=== PATIENT | female | born 1935 | race Caucasian/White ===

== ENCOUNTER 2019-01-28 05:39 | Emergency (ER) | payer MEDICARE, OTHER ==
[2019-01-28 06:04] VITALS: BP 149/57
[2019-01-28] MEDS ORDERED: FENTANYL CITRATE INJ/PF 100 MCG/2 ML AMPUL IV ONE (06:37)
[2019-01-28] MEDS ORDERED: ONDANSETRON HCL INJ/PF 4 MG/2 ML SDV IV ONE (06:38)
--- NOTE | 2019-01-28 06:38 | RADIOLOGY REPORT (SQ) ---
EXAM DESCRIPTION: CT HEAD WITHOUT IV CONTRAST COMPLETED DATE/TME: 01/28/2019 05:54 CLINICAL HISTORY: trauma/pain COMPARISON: None available TECHNIQUE: Axial CT of the head obtained from the skull apex to the skull base without contrast. FINDINGS: No acute intracranial hemorrhage identified. No mass, mass effect, shift of the midline, abnormal extra-axial fluid collection or CT evidence of acute ischemic change identified. The ventricular system and sulcal spaces are mildly enlarged compatible with mild cerebral atrophy. Scattered areas of hypodensity throughout the supratentorial white matter are nonspecific and may be related to chronic small vessel ischemic change. Mucosal thickening of paranasal sinuses. Mastoid air cells are well aerated. No skull fracture identified. Visualized orbits and globes are unremarkable. Atherosclerotic calcification of the intracranial internal carotid arteries. DLP: 937.36 mGy-cm IMPRESSION: 1. No acute intracranial abnormality by CT criteria. This exam was performed according to our departmental dose-optimization program, which includes automated exposure control, adjustment of the mA and/or kV according to patient size and/or use of iterative reconstruction technique.
--- NOTE | 2019-01-28 06:42 | RADIOLOGY REPORT (SQ) ---
EXAM DESCRIPTION: CT LUMBAR SPINE WITHOUT IV CONTRAST COMPLETED DATE/TME: 01/28/2019 06:09 CLINICAL HISTORY: 83 years, Female, fall COMPARISON: None. TECHNIQUE: 270 Images stored on PACS. All CT scanners at this facility use dose modulation, iterative reconstruction, and/or weight based dosing when appropriate to reduce radiation dose to as low as reasonably achievable (ALARA). [facility]: Dose Right [facility]: CareDose [facility]: Dose Right [facility]: Teradose 4D [facility]: Tab [place] LIMITATIONS: None. FINDINGS: 5 lumbar type vertebral bodies. Mild compression fracture deformity of L1 with minimal loss of height. There is slight posterior bulging of the superior L1 cortex without retropulsed fracture fragment. Height and alignment is otherwise preserved. Extensive atheromatous changes. Vacuum disc phenomenon at the L4-5 and L5-S1 levels. Mild facet arthropathy throughout the lumbar spine. Combination of degenerative changes and disc bulging at the L4-5 level causes at least moderate to severe central canal stenosis and mild neural foraminal narrowing. No other CT evidence for significant central canal stenosis. IMPRESSION: Mild compression fracture deformity of L1 with equivocal/minimal loss of height. Degenerative change at multiple levels, with moderate to severe central canal stenosis at L4-5 TECHNICAL DOCUMENTATION: Quality ID # [id number]: Final reports with documentation of one or more dose reduction techniques (e.g., Automated exposure control, adjustment of the mA and/or kV according to patient size, use of iterative reconstruction technique) copyright 2010 [employer]- All Rights Reserved
--- NOTE | 2019-01-28 06:48 | RADIOLOGY REPORT (SQ) ---
EXAM DESCRIPTION: CT CERVICAL SPINE WITHOUT IV CONTRAST COMPLETED DATE/TME: 01/28/2019 05:54 CLINICAL HISTORY: trauma/pain COMPARISON: None available TECHNIQUE: Axial CT of the cervical spine obtained without contrast. FINDINGS: Straightening of the cervical lordosis is likely secondary to patient positioning. The atlantoaxial, atlantodental, and occipitoatlantal intervals are preserved. No acute fracture identified. Vertebral body height preserved. Prevertebral soft tissues are unremarkable. Mild loss of intervertebral disc height with endplate spondylosis, facet arthropathy, and uncovertebral spurring throughout the cervical spine. Spurring and degenerative change of the atlantodental articulation. Mild anterolisthesis of C4 over C5 and C5 over C6 is likely degenerative. No widening of the facet joint spaces. Visualized skull base is intact. No fracture of the visualized facial bones. Visualized mastoid air cells and paranasal sinuses are well aerated. No cervical lymphadenopathy. No pneumothorax in the visualized lung apices. Atherosclerotic vascular calcification. DLP: 274.0 cm mGy-cm IMPRESSION: 1. No acute fracture or subluxation of the cervical spine. 2. Multilevel degenerative change throughout the cervical spine. This exam was performed according to our departmental dose-optimization program, which includes automated exposure control, adjustment of the mA and/or kV according to patient size and/or use of iterative reconstruction technique.
--- NOTE | 2019-01-28 06:50 | ER Document Report ---
ED Fall - General Chief Complaint: Fall Stated Complaint: FALL Time Seen by Provider: 01/28/19 06:06 Primary Care Provider: DEMAR ARORA [Primary Care Provider] - Follow up as needed TRAVEL OUTSIDE OF THE [place] IN LAST 30 DAYS: No - HPI Notes: Patient is an 83-year-old female who presents to the emergency department for evaluation. She was getting up to go to the bathroom. Her feet slipped out from underneath her. She fell, striking first her buttocks and then the back of her head. She denies loss of consciousness. When you ask her where she is hurting she states "everywhere." She is currently on blood thinners. Is unsure when her INR was last checked. Prior to arrival, patient's son replaced her 75 mcg fentanyl patch, also gave her an oral Percocet. She states that has not helped at all with her pain. - Related data Allergies/Adverse Reactions: codeine Allergy (Verified 01/28/19 06:01) Past Medical History - General Information source: Patient, Relative - Social History Smoking Status: Never Smoker Chew tobacco use (# tins/day): No Frequency of alcohol use: None Family History: Reviewed & Not Pertinent Patient has suicidal ideation: No Patient has homicidal ideation: No - Past Medical History Cardiac Medical History: Reports: Hx Atrial Fibrillation, Hx Hypercholesterolemia Renal/ Medical History: Denies: Hx Peritoneal Dialysis Musculoskeletal Medical History: Reports Other - Chronic back pain Review of Systems - Review of Systems Constitutional: No symptoms reported EENT: No symptoms reported Cardiovascular: No symptoms reported Respiratory: No symptoms reported Gastrointestinal: No symptoms reported Genitourinary: No symptoms reported Musculoskeletal: See HPI Skin: No symptoms reported Neurological/Psychological: No symptoms reported Physical Exam - Vital signs Vitals: Temp Pulse Resp BP Pulse Ox 97.9 F 70 16 149/57 H 95 01/28/19 05:51 01/28/19 05:51 01/28/19 05:51 01/28/19 05:51 01/28/19 05:51 - Notes Notes: Patient is an 83-year-old female appears his stated age, mild amount of distress secondary to pain. She is laying flat in the bed with c-collar in place. Head is normocephalic. Pupils are equal, round, reactive to light. Oral mucosa is moist. Uvula is midline. Heart is regular rate and rhythm, lungs are clear to auscultation bilaterally. Chest wall excursion is equal bilaterally. Abdomen soft, nontender, normoactive bowel sounds. The lightest touch of any of the extremities does elicit significant pain from the patient. Unable to perform passive or active range of motion of bilateral lower extremity secondary to pain. Neurovascular intact distally. No overt signs of trauma. She has had bilateral TKAs, scars are well-healed, no signs of dehiscence. Patient with some tenderness to palpation over the right scapular spine. Neurovascularly intact of the right upper extremity with full range of motion of the elbow, wrist, fingers, thumb. Course - Re-evaluation Re-evalutation: 01/28/19 09:50 Patient presents to the emergency department for evaluation after a fall. I cannot find any truly objective signs of injury on her exam, but the patient hurts nearly everywhere. Imaging is ordered. There was a compression fracture noted at L1, it is difficult to say as to whether or not this is acute. Again the patient had no global tenderness on evaluation of her spine. Patient medicated here with some relief. She is already on fentanyl and oxycodone at home. Otherwise, CT scans of the head, neck, plain films of the shoulder, bilateral hips, bilateral knees is unremarkable. She did sustain a head injury, thankfully her INR was only 1.3. We will discharge the patient to home. She is to follow-up with primary care. She is to return to the emergency department with worsening or new concerning symptoms of any sort. - Vital Signs Vital signs: Temp Pulse Resp BP Pulse Ox 97.9 F 70 16 149/57 H 95 01/28/19 05:51 01/28/19 05:51 01/28/19 05:51 01/28/19 05:51 01/28/19 05:51 - Laboratory Result Diagrams: 01/28/19 07:50 01/28/19 07:50 Laboratory results interpreted by me: 01/28/19 01/28/19 01/28/19 07:50 07:50 08:15 Hgb 11.8 L RDW 15.4 H PT 17.0 H Carbon Dioxide 32 H BUN 21 H Total Protein 6.2 L Albumin 3.4 L Ur Leukocyte Esterase 01/28/19 09:03 Hgb RDW PT Carbon Dioxide BUN Total Protein Albumin Ur Leukocyte Esterase MODERATE H Discharge - Discharge Clinical Impression: Head injury due to trauma Qualifiers: Encounter type: initial encounter Qualified Code(s): S09.90XA - Unspecified injury of head, initial encounter Fall Qualifiers: Encounter type: initial encounter Qualified Code(s): W19.XXXA - Unspecified fall, initial encounter Compression fracture of L1 lumbar vertebra Qualifiers: Encounter type: initial encounter Qualified Code(s): S32.010A - Wedge c ompression fracture of first lumbar vertebra, initial encounter for closed fracture Condition: Stable Disposition: HOME, SELF-CARE Instructions: Compression Fracture of the Spine ([facility]), Head Injury Precautions ([facility]) Additional Instructions: Continue your home medications as prescribed. Your INR was 1.3 today. You may need adjustment in your warfarin dose. Please contact your primary care elio zhou regarding this. If you develop increased pain, visual changes, vomiting, or any other new or concerning symptoms, return immediately to the emergency department for evaluation. Referrals: LOCALMD,NO [Primary Care Provider] - Follow up as needed
--- NOTE | 2019-01-28 07:49 | RADIOLOGY REPORT (SQ) ---
EXAM DESCRIPTION: XR SHOULDER 2 OR MORE VIEWS COMPLETED DATE/TME: 01/28/2019 06:48 CLINICAL HISTORY: 83 years, Female, fall, pain COMPARISON: None. FINDINGS: 3 views of the right shoulder. No acute fracture or dislocation. Osteopenia. No acute abnormalities of visualized right ribs. IMPRESSION: 1. No acute fracture or dislocation. copyright 2010 [employer]- All Rights Reserved
--- NOTE | 2019-01-28 07:50 | RADIOLOGY REPORT (SQ) ---
EXAM DESCRIPTION: XR HIP 1 VIEW BILATERAL COMPLETED DATE/TME: 01/28/2019 06:38 CLINICAL HISTORY: 83 years, Female, fall, pain COMPARISON: None. FINDINGS: Single view of the pelvis and lateral view of the right hip. Osteopenia. No acute fracture. Bilateral hip joint space narrowing. Healed left pubic ramus fracture. IMPRESSION: 1. No acute fracture identified. Given degree of osteopenia, if the patient continues to have pain follow-up radiographs may be helpful. 2. Osteophytic change of the bilateral hips copyright 2010 [employer]- All Rights Reserved
--- NOTE | 2019-01-28 07:51 | RADIOLOGY REPORT (SQ) ---
EXAM DESCRIPTION: XR KNEE 1-2 VIEWS BILATERAL COMPLETED DATE/TME: 01/28/2019 06:38 CLINICAL HISTORY: 83 years, Female, fall COMPARISON: None. FINDINGS: 2 views of the bilateral knees. Healed left fibular fracture. Lateral total knee arthroplasties. Osteopenia. No acute fractures identified. IMPRESSION: 1. Bilateral total knee arthroplasties. 2. No acute fractures identified. copyright 2010 [employer]- All Rights Reserved
[2019-01-28 08:03] LABS: ABSOLUTE EOSINOPHILS # (AUTO) 0.2 10^3/uL (0.0-0.6); ABSOLUTE LYMPHOCYTES (AUTO) 1.4 10^3/uL (0.5-4.7); ABSOLUTE MONOCYTES (AUTO) 0.8 10^3/uL (0.1-1.4); ABSOLUTE NEUT (AUTO) 6.8 10^3/uL (1.7-8.2); BASOPHILS % (AUTO) 0.2 % (0-2); EOSINOPHILS % (AUTO) 2.7 % (0-6); HEMATOCRIT 36.1 % (36.0-47.0); HEMOGLOBIN 11.8 g/dL (12.0-15.5); LYMPHOCYTES % (AUTO) 15.6 % (13-45); MEAN CORPUSCULAR HEMOGLOBIN 29.5 pg (27.0-33.4); MEAN CORPUSCULAR HGB CONC 32.5 g/dL (32.0-36.0); MEAN CORPUSCULAR VOLUME 91 fl (80-97); MONOCYTES % (AUTO) 8.1 % (3-13); PLATELET COUNT 261 10^3/uL (150-450); RED BLOOD COUNT 3.98 10^6/uL (3.72-5.28); RED CELL DISTRIBUTION WIDTH 15.4 % (11.5-14.0); SEGMENTED NEUTROPHILS % (AUTO) 73.4 % (42-78); TOTAL CELLS COUNTED % (AUTO) 100 %; WHITE BLOOD COUNT 9.3 10^3/uL (4.0-10.5)
[2019-01-28 08:24] LABS: ALANINE AMINOTRANSFERASE 22 U/L (9-52); ALBUMIN 3.4 g/dL (3.5-5.0); ALKALINE PHOSPHATASE 92 U/L (38-126); ANION GAP 9 (5-19); ASPARTATE AMINO TRANSFERASE 31 U/L (14-36); BILIRUBIN,DIRECT 0.4 mg/dL (0.0-0.4); BLOOD UREA NITROGEN 21 mg/dL (7-20); CALCIUM 8.9 mg/dL (8.4-10.2); CARBON DIOXIDE 32 mmol/L (22-30); CHLORIDE 101 mmol/L (98-107); GLUCOSE 87 mg/dL (75-110); POTASSIUM 4.6 mmol/L (3.6-5.0); TOTAL PROTEIN 6.2 g/dL (6.3-8.2)
[2019-01-28 08:39] LABS: INTERNATIONAL RATION (INR) 1.31
[2019-01-28 08:40] LABS: PARTIAL THROMBOPLASTIN TIME 34.2 SEC (23.5-35.8)
[2019-01-28 09:15] LABS: APPEARANCE,URINE CLEAR; BILIRUBIN,URINE NEGATIVE (NEGATIVE); COLOR,URINE YELLOW; GLUCOSE, URINE NEGATIVE (NEGATIVE); KETONES,URINE NEGATIVE (NEGATIVE); LEUKOCYTE ESTERASE,URINE MODERATE (NEGATIVE); NITRITE,URINE NEGATIVE (NEGATIVE); PROTEIN,URINE NEGATIVE (NEGATIVE); URINE SPECIFIC GRAVITY 1.011; UROBILINOGEN,URINE NEGATIVE mg/dL (<2.0)
== END 2019-01-28 10:05 | disposition home or self-care (01) ==
LOC: ER 05:39
DX: S32.010A Wedge compression fracture of first lumbar vertebra, initial encounter for closed fracture (principal); S09.90XA Unspecified injury of head, initial encounter; W01.0XXA Fall on same level from slipping, tripping and stumbling without subsequent striking against object, initial encounter; Y93.89 Activity, other specified; I48.91 Unspecified atrial fibrillation; Z79.01 Long term (current) use of anticoagulants; M54.9 Dorsalgia, unspecified; G89.29 Other chronic pain; Z79.891 Long term (current) use of opiate analgesic; Z88.5 Allergy status to narcotic agent
CPT/HCPCS: 99284; 96374; 96375; 36415; 87086; 85025; 85610; 85730; 80053; 81001; 73522; 73030; 73560; 70450; 72125; 72131; J3010; J2405

== ENCOUNTER 2020-05-10 08:27 | Emergency (ER) | payer MEDICARE ==
[2020-05-10] MEDS ORDERED: METHYLPREDNISOLONE INJ 125 MG/2 ML SDV IV ONE (08:58)
--- NOTE | 2020-05-10 09:01 | ER Document Report ---
ED General - General Chief Complaint: Shortness Of Breath Stated Complaint: SHORTNESS OF BREATH/WEAKNESS Time Seen by Provider: 05/10/20 08:40 Primary Care Provider: DEMAR ARORA [NO LOCAL MD] - Follow up as needed Mode of Arrival: Medic Information source: Patient Notes: 85-year-old female patient presents emergency department with chief complaint of cough and shortness of breath. Patient reports she traveled to [place] from [place] 1 week ago, she states her cough is chronic but she states the difficulty breathing started this morning. She reports significant history of recurrent pneumonias, COPD, A. fib, MT, mild dementia. She reports that she has a nonproductive cough, denies fever or chills. She does report pain to her right scapular area. She states this has been going on since yesterday and feels like a burning sensation. TRAVEL OUTSIDE OF THE [place] IN LAST 30 DAYS: No - Related Data Allergies/Adverse Reactions: codeine Allergy (Verified 01/28/19 06:01) Past Medical History - General Information source: Patient - Social History Smoking Status: Never Smoker Frequency of alcohol use: None Drug Abuse: None Family History: Reviewed & Not Pertinent - Past Medical History Cardiac Medical History: Reports: Hx Atrial Fibrillation, Hx Heart Attack, Hx Hypercholesterolemia Pulmonary Medical History: Reports: Hx COPD, Hx Pneumonia Renal/ Medical History: Denies: Hx Peritoneal Dialysis Past Surgical History: Reports: Hx Appendectomy, Hx Cholecystectomy, Hx Hysterectomy Review of Systems - Review of Systems Constitutional: No symptoms reported. denies: Chills, Fever EENT: No symptoms reported Cardiovascular: Dyspnea Respiratory: Cough, Short of breath Gastrointestinal: No symptoms reported Genitourinary: No symptoms reported Female Genitourinary: No symptoms reported Musculoskeletal: See HPI Skin: No symptoms reported Hematologic/Lymphatic: No symptoms reported Neurological/Psychological: No symptoms reported Physical Exam - Vital signs Vitals: Temp 98.3 F 05/10/20 08:27 - Notes Notes: PHYSICAL EXAMINATION: GENERAL: Appears to be stated age, no acute distress noted. HEAD: Atraumatic, normocephalic. EYES: Pupils equal round and reactive to light, extraocular movements intact, conjunctiva are normal. ENT: Nares patent, oropharynx clear without exudates. Moist mucous membranes. NECK: Normal range of motion, supple without lymphadenopathy LUNGS: Breath sounds clear to auscultation bilaterally and equal. No wheezes rales or rhonchi. HEART: Regular rate and rhythm without murmurs ABDOMEN: Soft, nontender, nondistended abdomen. No guarding, no rebound. No masses appreciated. Female : deferred Musculoskeletal: Normal range of motion, no pitting or edema. No cyanosis. NEUROLOGICAL: Cranial nerves grossly intact. Normal speech, normal gait. Normal sensory, motor exams PSYCH: Normal mood, normal affect. SKIN: Tenderness with slight touch to the skin over the right scapular area. Course - Re-evaluation Re-evalutation: Patient appears well, nontoxic. Patient reports she feels improved after being in the emergency department. Her work-up today is reassuring. It looks like she may have a developing pneumonia on x-ray as well as a urinary tract infection. Discussed with Dr. Marques. - Vital Signs Vital signs: Temp Pulse Resp BP Pulse Ox 98.3 F 20 119/89 H 96 05/10/20 08:27 05/10/20 14:00 05/10/20 10:01 05/10/20 14:00 - Laboratory Result Diagrams: 05/10/20 09:15 05/10/20 09:15 Laboratory results interpreted by me: 05/10/20 05/10/20 05/10/20 09:15 09:15 09:15 Hgb 10.6 L Hct 32.8 L MCH 26.9 L RDW 18.1 H Lymph % (Auto) 12.2 L Carbon Dioxide 31 H NT-Pro-B Natriuret Pep 2330 H Urine Protein Urine Blood Urine Urobilinogen Leukocyte Esterase Rfl 05/10/20 11:05 Hgb Hct MCH RDW Lymph % (Auto) Carbon Dioxide NT-Pro-B Natriuret Pep Urine Protein 100 H Urine Blood SMALL H Urine Urobilinogen 2.0 H Leukocyte Esterase Rfl LARGE H - Diagnostic Test Radiology reviewed: Image reviewed, Reports reviewed - EKG Interpretation by Me EKG shows normal: Sinus rhythm - EKG shows a sinus rhythm, rate of 85, QTC is prolonged at 495. There is no EKG for comparison. There is no obvious ST segment elevation or depression to suggest ischemia. Discharge - Discharge Clinical Impression: Pneumonia Qualifiers: Pneumonia type: due to unspecified organism Laterality: bilateral Lung location: unspecified part of lung Qualified Code(s): J18.9 - Pneumonia, unspecified organism Shingles Qualifiers: Herpes zoster complications: without complications Qualified Code(s): B02.9 - Zoster without complications Urinary tract infection Qualifiers: Urinary tract infection type: site unspecified Hematuria presence: without hematuria Qualified Code(s): N39.0 - Urinary tract infection, site not specified Condition: Stable Disposition: HOME, SELF-CARE Additional Instructions: You are being treated for early pneumonia, urinary tract infection and what appears to be the start of the shingles outbreak. Please take all medications as prescribed. Please have a low threshold for returning to the emergency department such as increased difficulty breathing, development of fever or any o ther concerning symptoms. We are happy to reevaluate you at any time. Please follow-up with your primary care doctor as soon as you return home to [place]. Call them this week to schedule an appointment for the day you get back. Prescriptions: Hydrocodone/Acetaminophen [[place] 5-325 mg Tablet] 0.5 - 1 tab PO Q6HP PRN #12 tablet PRN Reason: Prednisone [Deltasone 20 mg Tablet] 2 tab PO DAILY 5 Days #10 tablet Levofloxacin [Levaquin 750 mg Tablet] 750 mg PO DAILY #7 tablet Valacyclovir HCl [Valtrex] 1,000 mg PO BID #28 tablet Referrals: LOCALMD,NO [NO LOCAL MD] - Follow up as needed
--- NOTE | 2020-05-10 09:26 | RADIOLOGY REPORT (SQ) ---
EXAM DESCRIPTION: CHEST SINGLE VIEW IMAGES COMPLETED DATE/TIME: 05/10/2020 9:09 am REASON FOR STUDY: cough/sob COMPARISON: None. EXAM PARAMETERS: NUMBER OF VIEWS: One view. TECHNIQUE: Single frontal radiographic view of the chest acquired. RADIATION DOSE: NA LIMITATIONS: None. FINDINGS: LUNGS AND PLEURA: Small right greater than left pleural effusions. No focal consolidation . No pneumothorax. MEDIASTINUM AND HILAR STRUCTURES: No masses. Contour normal. HEART AND VASCULAR STRUCTURES: Mild cardiomegaly with central vascular congestion. BONES: No acute findings. HARDWARE: None in the chest. OTHER: No other significant finding. IMPRESSION: Constellation of findings consistent with early CHF exacerbation. TECHNICAL DOCUMENTATION: JOB ID: [id number] 2010 [employer]- All Rights Reserved Reading location - IP/workstation name: [email or web address]
[2020-05-10 09:32] LABS: VENOUS BLOOD BASE EXCESS 2.2 mmol/L; VENOUS BLOOD PCO2 48.8 mmHg (35-63); VENOUS BLOOD PH 7.38 (7.30-7.42)
[2020-05-10 09:33] LABS: ABSOLUTE BASOPHILS # (AUTO) 0.1 10^3/uL (0.0-0.2); ABSOLUTE EOSINOPHILS # (AUTO) 0.4 10^3/uL (0.0-0.6); ABSOLUTE LYMPHOCYTES (AUTO) 0.9 10^3/uL (0.5-4.7); ABSOLUTE MONOCYTES (AUTO) 0.5 10^3/uL (0.1-1.4); ABSOLUTE NEUT (AUTO) 5.5 10^3/uL (1.7-8.2); BASOPHILS % (AUTO) 0.8 % (0-2); EOSINOPHILS % (AUTO) 4.8 % (0-6); HEMATOCRIT 32.8 % (36.0-47.0); HEMOGLOBIN 10.6 g/dL (12.0-15.5); LYMPHOCYTES % (AUTO) 12.2 % (13-45); MEAN CORPUSCULAR HEMOGLOBIN 26.9 pg (27.0-33.4); MEAN CORPUSCULAR HGB CONC 32.2 g/dL (32.0-36.0); MEAN CORPUSCULAR VOLUME 84 fl (80-97); MONOCYTES % (AUTO) 6.9 % (3-13); PLATELET COUNT 250 10^3/uL (150-450); RED BLOOD COUNT 3.92 10^6/uL (3.72-5.28); RED CELL DISTRIBUTION WIDTH 18.1 % (11.5-14.0); SEGMENTED NEUTROPHILS % (AUTO) 75.3 % (42-78); TOTAL CELLS COUNTED % (AUTO) 100 %; WHITE BLOOD COUNT 7.3 10^3/uL (4.0-10.5)
[2020-05-10 09:53] LABS: ALBUMIN 3.6 g/dL (3.5-5.0); ALKALINE PHOSPHATASE 102 U/L (38-126); ANION GAP 7 (5-19); ASPARTATE AMINO TRANSFERASE 25 U/L (14-36); BILIRUBIN,TOTAL 0.8 mg/dL (0.2-1.3); BLOOD UREA NITROGEN 17 mg/dL (7-20); CALCIUM 8.7 mg/dL (8.4-10.2); CARBON DIOXIDE 31 mmol/L (22-30); CHLORIDE 103 mmol/L (98-107); GLUCOSE 110 mg/dL (75-110); POTASSIUM 3.9 mmol/L (3.6-5.0); TOTAL PROTEIN 6.5 g/dL (6.3-8.2)
[2020-05-10 11:46] LABS: APPEARANCE,URINE SLIGHTLY-CLOUDY; BILIRUBIN,URINE NEGATIVE (NEGATIVE); COLOR,URINE YELLOW; GLUCOSE, URINE NEGATIVE (NEGATIVE); KETONES,URINE NEGATIVE (NEGATIVE); PROTEIN,URINE 100 mg/dL (NEGATIVE); URINE SPECIFIC GRAVITY 1.025
[2020-05-10] MEDS ORDERED: CEFTRIAXONE 1 GM/D5W RTU 1 GM/50 ML RTUPB IV ONE (11:51)
[2020-05-10] MEDS ORDERED: KETOROLAC TROMETHAMINE INJ/PF 30 MG/1 ML SDV IV ONE (12:44)
[2020-05-10] MEDS ORDERED: ONDANSETRON HCL INJ/PF 4 MG/2 ML SDV IV ONE (12:44)
[2020-05-10 14:45] VITALS: BP 119/89
--- NOTE | 2020-05-10 20:10 | EKG REPORT ---
SEVERITY:- ABNORMAL ECG - ATRIAL FIBRILLATION LOW VOLTAGE IN FRONTAL LEADS BORDERLINE T ABNORMALITIES, INFERIOR LEADS BORDERLINE PROLONGED QT INTERVAL : Confirmed by: Joby Morris MD 10-May-2020 20:10:05
== END 2020-05-10 15:00 | disposition home or self-care (01) ==
LOC: ER 08:27
DX: J18.9 Pneumonia, unspecified organism (principal); J44.0 Chronic obstructive pulmonary disease with (acute) lower respiratory infection; B02.9 Zoster without complications; N39.0 Urinary tract infection, site not specified; R06.02 Shortness of breath; R05 Cough; M25.511 Pain in right shoulder; I25.2 Old myocardial infarction; Z87.01 Personal history of pneumonia (recurrent); Z88.5 Allergy status to narcotic agent; Z88.6 Allergy status to analgesic agent
CPT/HCPCS: 93005; 99285; 96375; 96365; 36415; 87040; 87086; 85025; 80053; 81001; 82803; 83880; 71045; 93010; J2930; J1885; J2405; J0696

== ENCOUNTER 2020-05-24 10:45 | Inpatient (IN) | payer MEDICARE ==
--- NOTE | 2020-05-24 11:24 | ER Document Report ---
ED Respiratory Problem - General Chief Complaint: Shortness Of Breath Stated Complaint: SHORTNESS OF BREATH/HEADACHE/COUGH Time Seen by Provider: 05/24/20 10:55 Notes: Patient 85-year-old female with history of dementia who presents the emergency department with shortness of breath. Patient signed gave history, as the patient does have dementia and she said, "ask my son.". Son states that over the last few days, the patient has had increased wheezing and coughing. Son states that every morning the patient has a cough. Patient also has increased swelling to bilateral lower legs that the patient states started yesterday and has gotten progressively worse over the last 24 hours. Son also reports that the patient was complaining of a headache. Patient denies any new weaknesses. TRAVEL OUTSIDE OF THE [place] IN LAST 30 DAYS: No - Related Data Allergies/Adverse Reactions: codeine Allergy (Verified 01/28/19 06:01) Past Medical History - General Information source: Relative - Son - Social History Smoking Status: Unknown if Ever Smoked Family History: Reviewed & Not Pertinent - Past Medical History Cardiac Medical History: Reports: Hx Atrial Fibrillation, Hx Heart Attack, Hx Hypercholesterolemia Pulmonary Medical History: Reports: Hx COPD, Hx Pneumonia Renal/ Medical History: Denies: Hx Peritoneal Dialysis Past Surgical History: Reports: Hx Appendectomy, Hx Cholecystectomy, Hx Hysterectomy Review of Systems - Review of Systems -: Yes ROS unobtainable due to patient's medical condition Physical Exam - Vital signs Vitals: Pulse Ox 88 L 05/24/20 11:20 - Notes Notes: PHYSICAL EXAMINATION: GENERAL: Appears well, healthy, well-nourished, no acute distress. HEAD: Normocephalic, atraumatic. EYES: PERRL, conjunctiva normal, all extraocular movements intact, sclera nonicteric ENT: Moist mucous membranes. NECK: Supple, no noticeable swelling, redness, rash. Normal range of motion. LUNGS: Diminished breath sounds in the bases. CARDIOVASCULAR: S1-S2, regular rate, regular rhythm. Radial pulses 2+, normal. ABDOMEN: Normoactive bowel sounds. Soft, nontender, no guarding, no rebound tenderness, and no masses palpated. EXTREMITIES: Normal strength and range of motion, no pitting or edema. No cyanosis. NEUROLOGICAL: Moves all extremities upon command. Strength 5/5 in all extremities. PSYCH: Normal mood, normal affect. SKIN: Warm, dry. No rash, lesions, ulcerations noted. Normal skin turgor. Course - Re-evaluation Re-evalutation: 05/24/20 13:01 Hematology is unremarkable and no change from about 2 weeks ago. Blood gas jose luis ws that the patient is hypoxic on room air at a PO2 of 53. Patient was placed on 2 L nasal cannula. Chemistries are unremarkable. BNP is 2820, which is higher than her previous visit which was 2330. Nursing staff informed me that the patient appeared to try to take out her IV and take her leads off. Based off the patient's labs, we will give the patient a dose of Lasix, as she has congestive heart failure. I suspect that most likely she most likely has new onset congestive heart failure or an acute exacerbation of chronic congestive heart failure. Called hospitalist for admission. 05/24/20 13:[address] Bernal, the hospitalist. The patient will be admitted to the telemetry floor. - Vital Signs Vital signs: Temp Pulse Resp BP Pulse Ox 94 14 156/83 H 96 05/24/20 19:33 05/24/20 18:07 05/24/20 18:07 05/24/20 18:07 - Laboratory Result Diagrams: 05/24/20 18:30 05/24/20 11:33 Laboratory results interpreted by me: 05/24/20 05/24/20 05/24/20 11:33 11:33 11:33 Hgb 10.4 L Hct 32.2 L RDW 19.1 H Lymph % (Auto) 10.9 L Seg Neutrophils % 79.5 H Carbonic Acid ABG pCO2 ABG pO2 ABG HCO3 ABG Total CO2 ABG O2 Saturation Carbon Dioxide 31 H Total Bilirubin 1.4 H Direct Bilirubin 0.5 H NT-Pro-B Natriuret Pep 2820 H Total Protein 5.9 L Urine Protein Urine Urobilinogen Leukocyte Esterase Rfl 05/24/20 05/24/20 11:33 13:05 Hgb Hct RDW Lymph % (Auto) Seg Neutrophils % Carbonic Acid 1.36 H ABG pCO2 45.3 H ABG pO2 53.2 L ABG HCO3 30.2 H ABG Total CO2 31.6 H ABG O2 Saturation 88.6 L Carbon Dioxide Total Bilirubin Direct Bilirubin NT-Pro-B Natriuret Pep Total Protein Urine Protein 30 H Urine Urobilinogen 4.0 H Leukocyte Esterase Rfl TRACE H Discharge - Discharge Clinical Impression: Shortness of breath Congestive heart failure Qualifiers: Heart failure type: other Qualified Code(s): I50.9 - Heart failure, unspecified Condition: Stable Disposition: ADMITTED INPATIENT Admitting Provider: Dolores (Hospitalist) Unit Admitted: Telemetry
[2020-05-24] MEDS ORDERED: ACETAMINOPHEN 325 MG TABLET PO ONE (11:29)
--- NOTE | 2020-05-24 11:29 | RADIOLOGY REPORT (SQ) ---
EXAM DESCRIPTION: CHEST SINGLE VIEW IMAGES COMPLETED DATE/TIME: 05/24/2020 11:12 am REASON FOR STUDY: shortness of breath COMPARISON: Chest radiograph 05/10/2020 NUMBER OF VIEWS: One view. TECHNIQUE: Single frontal radiographic view of the chest acquired. LIMITATIONS: None. FINDINGS: LUNGS AND PLEURA: Small left greater than right pleural effusions. No focal pulmonary con solidation. No pneumothorax. MEDIASTINUM AND HILAR STRUCTURES: No masses. Contour normal. HEART AND VASCULAR STRUCTURES: Cardiomegaly with a tortuous and calcified thoracic aorta. The pulmon brandin vasculature is prominent throughout. BONES: No acute findings. HARDWARE: None in the chest. OTHER: No other significant finding. IMPRESSION: Constellation findings most likely representing pulmonary edema in the setting of conges tive heart failure. Recommend radiographic follow-up. TECHNICAL DOCUMENTATION: JOB ID: [id number] 2010 [employer]- All Rights Reserved Reading location - IP/workstation name: [email or web address]
[2020-05-24 11:59] LABS: ABSOLUTE EOSINOPHILS # (AUTO) 0.2 10^3/uL (0.0-0.6); ABSOLUTE MONOCYTES (AUTO) 0.6 10^3/uL (0.1-1.4); ABSOLUTE NEUT (AUTO) 7.5 10^3/uL (1.7-8.2); BASOPHILS % (AUTO) 0.5 % (0-2); EOSINOPHILS % (AUTO) 2.6 % (0-6); HEMATOCRIT 32.2 % (36.0-47.0); HEMOGLOBIN 10.4 g/dL (12.0-15.5); LYMPHOCYTES % (AUTO) 10.9 % (13-45); MEAN CORPUSCULAR HEMOGLOBIN 27.4 pg (27.0-33.4); MEAN CORPUSCULAR HGB CONC 32.2 g/dL (32.0-36.0); MEAN CORPUSCULAR VOLUME 85 fl (80-97); MONOCYTES % (AUTO) 6.5 % (3-13); PLATELET COUNT 260 10^3/uL (150-450); RED BLOOD COUNT 3.79 10^6/uL (3.72-5.28); RED CELL DISTRIBUTION WIDTH 19.1 % (11.5-14.0); SEGMENTED NEUTROPHILS % (AUTO) 79.5 % (42-78); TOTAL CELLS COUNTED % (AUTO) 100 %; WHITE BLOOD COUNT 9.4 10^3/uL (4.0-10.5)
[2020-05-24 12:01] LABS: ARTERIAL BLOOD BASE EXCESS 5.4 mmol/L; ARTERIAL BLOOD H2CO3 1.36 mmol/L (1.05-1.35); ARTERIAL BLOOD HCO3 30.2 mmol/L (20-24); ARTERIAL BLOOD O2 SATURATION 88.6 % (94-98); ARTERIAL BLOOD PCO2 45.3 mmHg (35-45); ARTERIAL BLOOD PH 7.44 (7.35-7.45); ARTERIAL BLOOD PO2 53.2 mmHg (80-100); ARTERIAL BLOOD TOTAL CO2 31.6 mmol/L (21-25)
[2020-05-24 12:15] LABS: ALBUMIN 3.5 g/dL (3.5-5.0); ALKALINE PHOSPHATASE 121 U/L (38-126); ANION GAP 7 (5-19); ASPARTATE AMINO TRANSFERASE 18 U/L (14-36); BILIRUBIN,DIRECT 0.5 mg/dL (0.0-0.4); BILIRUBIN,TOTAL 1.4 mg/dL (0.2-1.3); BLOOD UREA NITROGEN 13 mg/dL (7-20); CALCIUM 8.5 mg/dL (8.4-10.2); CARBON DIOXIDE 31 mmol/L (22-30); CHLORIDE 101 mmol/L (98-107); GLUCOSE 97 mg/dL (75-110); POTASSIUM 4.4 mmol/L (3.6-5.0); TOTAL PROTEIN 5.9 g/dL (6.3-8.2)
[2020-05-24] MEDS ORDERED: FUROSEMIDE INJ/PF 20 MG/2 ML SDV IV ONE (13:00)
[2020-05-24 13:34] LABS: APPEARANCE,URINE CLEAR; BILIRUBIN,URINE NEGATIVE (NEGATIVE); COLOR,URINE YELLOW; GLUCOSE, URINE NEGATIVE (NEGATIVE); KETONES,URINE NEGATIVE (NEGATIVE); PROTEIN,URINE 30 mg/dL (NEGATIVE); URINE SPECIFIC GRAVITY 1.017
[2020-05-24] MEDS ORDERED: ONDANSETRON HCL INJ/PF 4 MG/2 ML SDV IV PRN (17:16)
[2020-05-24] MEDS ORDERED: NITROGLYCERIN 0.4 MG/TAB 25 TAB/BOTTLE SL PRN (17:16)
[2020-05-24] MEDS ORDERED: FLUOXETINE HCL 20 MG CAPSULE PO ONE (17:28)
[2020-05-24] MEDS ORDERED: LOSARTAN POTASSIUM 50 MG TABLET PO ONE (17:39)
[2020-05-24] MEDS: FUROSEMIDE INJ/PF 40 MG/4 ML SDV IV SCH (18:09)
[2020-05-24] MEDS: PANTOPRAZOLE SODIUM 20 MG TABLET.DR PO SCH (18:09)
[2020-05-24] MEDS: NYSTATIN CREAM 15 GM TP SCH (18:14)
--- NOTE | 2020-05-24 18:18 | PDOC H&P ---
History of Present Illness Admission Date/PCP: 05/24/20 13:21 Patient complains of: SOB, leg swelling History of Present Illness: CHANCE RUBIO is a 85 year old female with history of AFib, MVP on coumadin, CAD, congestive heart failure, shingles, winged scapula, neuropathic shoulder pain, who presents to the hospital for evaluation of shortness of breath, and leg swelling. Patient is based in [place] and recently visited her children. She moved here 3 weeks ago. She has been having shortness of breath for a few weeks now. She is also had chronic leg swelling but has progressively increased over the past few weeks. She denies any chest pain orthopnea. Denies any PND. Denies fever or chills. Does have cough mornings. Denies nausea vomiting. [place] she was diagnosed with congestive heart failure several years ago. Also states she takes Coumadin for mitral valve prolapse A. fib and history of blood clots. Daughter informs me that patient has had heart attacks several years ago. Patient takes Lasix daily in the morning. In the ER patient was noted to be hypoxic was SPO2 of 88%. Subsequently placed on 2 L. In the time of my encounter, patient was on room air. Past Medical History Cardiac Medical History: Reports: Atrial Fibrillation, Coronary Artery Disease, Myocardial Infarction, Hyperlipidema Pulmonary Medical History: Reports: Chronic Obstructive Pulmonary Disease (COPD), Pneumonia Past Surgical History Past Surgical History: Reports: Appendectomy, Cholecystectomy, Hysterectomy Social History Smoking Status: Unknown if Ever Smoked Frequency of Alcohol Use: None Hx Recreational Drug Use: No - Advance Directive Resuscitation Status: Full Code Family History Family History: Hypertension Parental Family History Reviewed: Yes Children Family History Reviewed: Unknown Sibling(s) Family History Reviewed.: NA Medication/Allergy Home Medications: Acetaminophen [Tylenol] 650 mg PO Q4HP PRN 05/10/20 Aspirin [Ecotrin 81 mg EC Tablet] 81 mg PO DAILY 05/10/20 Buspirone HCl 5 mg PO TID 05/10/20 Fluoxetine HCl [Prozac 20 mg Capsule] 40 mg PO DAILY 05/10/20 Gabapentin [Neurontin 100 mg Capsule] 100 mg PO Q12 05/10/20 Hydrocodone/Acetaminophen [[place] 5-325 mg Tablet] 0.5 - 1 tab PO Q6HP PRN #12 tablet 05/10/20 Levofloxacin [Levaquin 750 mg Tablet] 750 mg PO DAILY #7 tablet 05/10/20 Melatonin 10 mg PO QHS 05/10/20 Nadolol 80 mg PO DAILY 05/10/20 Nitroglycerin [Nitrostat 0.4 mg (1/150 Gr) Tabs 25/Bottle] 1 tab SL Q5MP PRN 0 05/10/20 Omeprazole 20 mg PO DAILY 05/10/20 Oxycodone HCl/Acetaminophen [Percocet 5-325 mg Tablet] 1 tab PO Q6HP PRN 05/10/20 Potassium Chloride [Klor-Con M10] 10 meq PO Q3D 05/10/20 Prednisone [Deltasone 20 mg Tablet] 2 tab PO DAILY 5 Days #10 tablet 05/10/20 Rosuvastatin Calcium 5 mg PO MOWEFR@1000 05/10/20 Trazodone HCl [Desyrel 50 mg Tablet] 50 mg PO HSP PRN 05/10/20 Valacyclovir HCl [Valtrex] 1,000 mg PO BID #28 tablet 05/10/20 Warfarin Sodium [Jantoven 3 mg Tablet] 3 mg PO DAILY 05/10/20 Allergies/Adverse Reactions: codeine Allergy (Verified 01/28/19 06:01) Review of Systems Constitutional: ABSENT: fatigue, fever(s) Eyes: ABSENT: visual disturbances Cardiovascular: ABSENT: chest pain Gastrointestinal: ABSENT: abdominal pain, nausea, vomiting Neurological: ABSENT: confusion, dizziness Psychiatric: ABSENT: anxiety Hematologic/Lymphatic: ABSENT: easy bruising Allergic/Immunologic: ABSENT: seasonal rhinorrhea Physical Exam Vital Signs: Temp Pulse Resp BP Pulse Ox 18 173/83 H 95 05/24/20 15:01 05/24/20 15:01 05/24/20 15:01 Intake & Output 05/23/20 05/24/20 05/25/20 06:59 06:59 06:59 Weight 69.7 kg General appearance: PRESENT: no acute distress, cooperative Mouth exam: PRESENT: neck supple Neck exam: PRESENT: JVD Respiratory exam: PRESENT: crackles - Bilateral lung graf, symmetrical, unlabored. ABSENT: tachypnea, wheezes Cardiovascular exam: PRESENT: RRR, +S1, +S2. ABSENT: tachycardia GI/Abdominal exam: PRESENT: soft. ABSENT: rebound, rigid, tenderness Extremities exam: PRESENT: +2 edema - Bilateral lower extremities. ABSENT: calf tenderness Neurological exam: PRESENT: alert, awake, oriented to person, oriented to place, oriented to time, oriented to situation Psychiatric exam: ABSENT: agitated, anxious Focused psych exam: ABSENT: pressured speech Results Laboratory Results: 05/24/20 11:33 05/24/20 11:33 05/24/20 05/24/20 05/24/20 11:33 11:33 11:33 WBC 9.4 RBC 3.79 Hgb 10.4 L Hct 32.2 L MCV 85 MCH 27.4 MCHC 32.2 RDW 19.1 H Plt Count 260 Seg Neutrophils % 79.5 H Carbonic Acid 1.36 H HCO3/H2CO3 Ratio 22:1 ABG pH 7.44 ABG pCO2 45.3 H ABG pO2 53.2 L ABG HCO3 30.2 H ABG O2 Saturation 88.6 L ABG Base Excess 5.4 FiO2 88% Sodium 139.1 Potassium 4.4 Chloride 101 Carbon Dioxide 31 H Anion Gap 7 BUN 13 Creatinine 0.78 Est GFR ( Amer) > 60 Glucose 97 Calcium 8.5 Total Bilirubin 1.4 H AST 18 Alkaline Phosphatase 121 Total Protein 5.9 L Albumin 3.5 Urine Color Urine Appearance Urine pH Ur Specific [place] Urine Protein Urine Glucose (UA) Urine Ketones Urine Blood Urine RBC (Auto) 05/24/20 13:05 WBC RBC Hgb Hct MCV MCH MCHC RDW Plt Count Seg Neutrophils % Carbonic Acid HCO3/H2CO3 Ratio ABG pH ABG pCO2 ABG pO2 ABG HCO3 ABG O2 Saturation ABG Base Excess FiO2 Sodium Potassium Chloride Carbon Dioxide Anion Gap BUN Creatinine Est GFR ( Amer) Glucose Calcium Total Bilirubin AST Alkaline Phosphatase Total Protein Albumin Urine Color YELLOW Urine Appearance CLEAR Urine pH 7.0 Ur Specific [place] 1.017 Urine Protein 30 H Urine Glucose (UA) NEGATIVE Urine Ketones NEGATIVE Urine Blood NEGATIVE Urine RBC (Auto) 12 05/24/20 11:33 NT-Pro-B Natriuret Pep 2820 H Impressions: Chest X-Ray 05/24/20 10:55 IMPRESSION: Constellation findings most likely representing pulmonary edema in the setting of congestive heart failure. Recommend radiographic follow-up. Assessment and Plan - Diagnosis (1) Acute congestive heart failure Qualifiers: Heart failure type: unspecified Qualified Code(s): I50.9 - Heart failure, unspecified Is this a current diagnosis for this admission?: Yes Plan: In decompensated heart failure. We will do IV diuresis with Lasix 2 times daily. Cardiology consulted Placed on telemetry Fluid restriction Strict I's and O's Check echocardiogram for EF evaluation (2) Hypoxia Is this a current diagnosis for this admission?: Yes Plan: initially 88% on room air on initial presentation and required 2 L nasal ca nnula. Currently satting well on room air on my evaluation. Likely was secondary to pulmonary edema. (3) Hypertension Qualifiers: Hypertension type: essential hypertension Qualified Code(s): I10 - Essential (primary) hypertension Is this a current diagnosis for this admission?: Yes Plan: Noted to be hypertensive here. Daughter denies history of hypertension however. Will put on losartan. 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 Continue gabapentin. (5) Atrial fibrillation Qualifiers: Atrial fibrillation type: unspecified chronic Qualified Code(s): I48.20 - Chronic atrial fibrillation, unspecified; I48.2 - Chronic atrial fibrillation Is this a current diagnosis for this admission?: Yes Plan: Currently in A. fib her rate is controlled. Uncertain why specifically on nadolol but will continue nadolol. Continue Coumadin. Goal INR 2-3 (6) CAD (coronary artery disease) Is this a current diagnosis for this admission?: Yes Plan: continue ASA, statin and SL nitro prn. Check troponin. EKG reviewed. Lipid panel - Time Time Spent with patient: 35 or more minutes Anticipated Discharge Disposition: Home, Self Care Anticipated Discharge Timeframe: within 48 hours
[2020-05-24 18:41] LABS: HEMATOCRIT 33.1 % (36.0-47.0); HEMOGLOBIN 10.6 g/dL (12.0-15.5); MEAN CORPUSCULAR HEMOGLOBIN 27.4 pg (27.0-33.4); MEAN CORPUSCULAR HGB CONC 32.1 g/dL (32.0-36.0); MEAN CORPUSCULAR VOLUME 85 fl (80-97); PLATELET COUNT 273 10^3/uL (150-450); RED BLOOD COUNT 3.88 10^6/uL (3.72-5.28); RED CELL DISTRIBUTION WIDTH 18.9 % (11.5-14.0); WHITE BLOOD COUNT 10.1 10^3/uL (4.0-10.5)
--- NOTE | 2020-05-24 20:48 | EKG REPORT ---
SEVERITY:- ABNORMAL ECG - ATRIAL FIBRILLATION BORDERLINE PROLONGED QT INTERVAL : Confirmed by: iGna Epps MD 24-May-2020 20:48:00
[2020-05-24] MEDS: ATORVASTATIN CALCIUM 10 MG TABLET PO SCH (21:44)
[2020-05-24] MEDS: BUSPIRONE HCL 10 MG TABLET PO SCH (21:44)
[2020-05-24] MEDS: TRAZODONE HCL 50 MG TABLET PO SCH (21:44)
[2020-05-24] MEDS: FAMOTIDINE 20 MG TABLET PO SCH (21:44)
[2020-05-24] MEDS: GABAPENTIN 100 MG CAPSULE PO SCH (21:44)
[2020-05-25] MEDS: BUSPIRONE HCL 10 MG TABLET PO SCH ×5 (05:52→21:03)
--- NOTE | 2020-05-25 07:12 | EKG REPORT ---
SEVERITY:- ABNORMAL ECG - ATRIAL FIBRILLATION /FLUTTER BORDERLINE T ABNORMALITIES, INFERIOR LEADS BORDERLINE PROLONGED QT INTERVAL : Confirmed by: Petey Saunders MD 25-May-2020 07:11:37
[2020-05-25 08:32] LABS: INTERNATIONAL RATION (INR) 1.53; PROTHROMBIN TIME 18.6 SEC (11.4-15.4)
[2020-05-25 08:41] LABS: ABSOLUTE BASOPHILS # (AUTO) 0.1 10^3/uL (0.0-0.2); ABSOLUTE EOSINOPHILS # (AUTO) 0.2 10^3/uL (0.0-0.6); ABSOLUTE LYMPHOCYTES (AUTO) 0.9 10^3/uL (0.5-4.7); ABSOLUTE MONOCYTES (AUTO) 0.7 10^3/uL (0.1-1.4); ABSOLUTE NEUT (AUTO) 7.1 10^3/uL (1.7-8.2); BASOPHILS % (AUTO) 0.6 % (0-2); EOSINOPHILS % (AUTO) 2.4 % (0-6); HEMATOCRIT 31.3 % (36.0-47.0); HEMOGLOBIN 10.1 g/dL (12.0-15.5); LYMPHOCYTES % (AUTO) 9.9 % (13-45); MEAN CORPUSCULAR HEMOGLOBIN 27.5 pg (27.0-33.4); MEAN CORPUSCULAR HGB CONC 32.5 g/dL (32.0-36.0); MEAN CORPUSCULAR VOLUME 85 fl (80-97); MONOCYTES % (AUTO) 8.3 % (3-13); PLATELET COUNT 252 10^3/uL (150-450); RED BLOOD COUNT 3.69 10^6/uL (3.72-5.28); RED CELL DISTRIBUTION WIDTH 18.6 % (11.5-14.0); SEGMENTED NEUTROPHILS % (AUTO) 78.8 % (42-78); TOTAL CELLS COUNTED % (AUTO) 100 %
[2020-05-25 08:48] LABS: ALBUMIN 3.4 g/dL (3.5-5.0); ALKALINE PHOSPHATASE 111 U/L (38-126); ANION GAP 10 (5-19); ASPARTATE AMINO TRANSFERASE 16 U/L (14-36); BILIRUBIN,DIRECT 0.4 mg/dL (0.0-0.4); BILIRUBIN,TOTAL 1.5 mg/dL (0.2-1.3); BLOOD UREA NITROGEN 13 mg/dL (7-20); CALCIUM 8.4 mg/dL (8.4-10.2); CARBON DIOXIDE 33 mmol/L (22-30); CHLORIDE 98 mmol/L (98-107); CHOLESTEROL 164.31 mg/dL (0-200); GLUCOSE 76 mg/dL (75-110); POTASSIUM 3.7 mmol/L (3.6-5.0); TOTAL PROTEIN 5.2 g/dL (6.3-8.2); TRIGLYCERIDES 87 mg/dL (<150)
[2020-05-25 09:11] LABS: DIRECT LDL 115 mg/dL (<100)
[2020-05-25] MEDS: FAMOTIDINE 20 MG TABLET PO SCH ×2 (09:37→21:02)
[2020-05-25] MEDS: GABAPENTIN 100 MG CAPSULE PO SCH ×2 (09:37→21:03)
[2020-05-25] MEDS: ASPIRIN 81 MG TABLET, ENT COATED PO SCH (09:37)
[2020-05-25] MEDS: LOSARTAN POTASSIUM 50 MG TABLET PO SCH (09:37)
[2020-05-25] MEDS: FLUOXETINE HCL 20 MG CAPSULE PO SCH (09:38)
[2020-05-25] MEDS: PANTOPRAZOLE SODIUM 20 MG TABLET.DR PO SCH ×2 (09:38→13:48)
[2020-05-25] MEDS: OXYCODONE-ACETAMINOPHEN 5-325 MG TABLET PO PRN ×2 (09:39→17:58)
[2020-05-25] MEDS: NADOLOL 40 MG TABLET PO SCH (09:39)
[2020-05-25] MEDS: NYSTATIN CREAM 15 GM TP SCH ×2 (09:40→18:12)
[2020-05-25] MEDS ORDERED: POTASSIUM CHLORIDE 10 MEQ TABLET.ER PO SCH (10:00)
[2020-05-25] MEDS: FUROSEMIDE INJ/PF 40 MG/4 ML SDV IV SCH ×2 (10:00→17:59)
--- NOTE | 2020-05-25 12:50 | PDOC CONSULTATION ---
Consultation Consult Date: 05/25/20 Attending physician:: RAUL ANGELES Provider Consulted: JESSICA LO Consult reason:: HF History of Present Illness Admission Date/PCP: 05/24/20 13:21 History of Present Illness: CHANCE RUBIO is an 85 year old female with history of atrial fibrillation, MVP, CAD of unknown extension however she denies cardiac interventions, congestive heart failure, hyperlioidemia, shingles, winged scapula and neuropathic shoulder pain, who is consulted to our service for evaluation and treatment of heart failure. The patient initially presented to our ED on 05/10/20 for evaluation of shortness of breath. At that time she was diagnosed with pneumonia and was sent home. Her symptoms continued to worsen therefore she presented yesterday for further evaluation. Since admission she is -2.3L and feels better. She has no cardiac complaints today. Physical exam on 05/25/20: GA: pleasant and conversational. No acute distress. NECK: no JVD. HEART: irregularly irregular rhythm, no murmurs, no gallops, no rubs. LE: trace to 1+ pitting edema bilaterally, no cyanosis. Past Medical History Cardiac Medical History: Reports: Atrial Fibrillation, Coronary Artery Disease, Myocardial Infarction, Hyperlipidema Pulmonary Medical History: Reports: Chronic Obstructive Pulmonary Disease (COPD), Pneumonia Psychiatric Medical History: Denies: Depression Past Surgical History Past Surgical History: Reports: Appendectomy, Cholecystectomy, Hysterectomy Social History Smoking Status: Unknown if Ever Smoked Electronic Cigarette use?: No Frequency of Alcohol Use: None Hx Recreational Drug Use: No Drugs: None - Advance Directive Resuscitation Status: Full Code Family History Family History: Reviewed & Not Pertinent Parental Family History Reviewed: Yes Children Family History Reviewed: Yes Sibling(s) Family History Reviewed.: Yes Medication/Allergy Home Medications: Acetaminophen [Tylenol] 650 mg PO Q4HP PRN 05/10/20 Aspirin [Ecotrin 81 mg EC Tablet] 81 mg PO DAILY 05/10/20 Buspirone HCl 5 mg PO TID 05/10/20 Fluoxetine HCl [Prozac 20 mg Capsule] 40 mg PO DAILY 05/10/20 Gabapentin [Neurontin 100 mg Capsule] 100 mg PO Q12 05/10/20 Melatonin 10 mg PO QHS 05/10/20 Nadolol 80 mg PO DAILY 05/10/20 Nitroglycerin [Nitrostat 0.4 mg (1/150 Gr) Tabs 25/Bottle] 1 tab SL Q5MP PRN 05/10/20 Omeprazole 20 mg PO DAILY 05/10/20 Oxycodone HCl/Acetaminophen [Percocet 5-325 mg Tablet] 1 tab PO Q6HP PRN 05/10/20 Potassium Chloride [Klor-Con M10] 10 meq PO Q3D 05/10/20 Rosuvastatin Calcium 5 mg PO MOWEFR@1000 05/10/20 Trazodone HCl [Desyrel 50 mg Tablet] 50 mg PO HSP PRN 05/10/20 Warfarin Sodium [Jantoven 3 mg Tablet] 3 mg PO QHS 05/10/20 Allergies/Adverse Reactions: codeine Allergy (Verified 01/28/19 06:01) Physical Exam Vital Signs: Temp Pulse Resp BP Pulse Ox 98.0 F 86 17 142/62 H 93 05/25/20 00:03 05/25/20 02:00 05/25/20 00:03 05/25/20 00:03 05/25/20 00:03 Intake & Output 05/23/20 05/24/20 05/25/20 06:59 06:59 06:59 Output Total 1600 Balance -1600 Weight 68.8 kg Results Laboratory Results: 05/24/20 18:30 05/24/20 11:33 05/24/20 05/24/20 05/24/20 11:33 11:33 11:33 WBC 9.4 RBC 3.79 Hgb 10.4 L Hct 32.2 L MCV 85 MCH 27.4 MCHC 32.2 RDW 19.1 H Plt Count 260 Seg Neutrophils % 79.5 H Carbonic Acid 1.36 H HCO3/H2CO3 Ratio 22:1 ABG pH 7.44 ABG pCO2 45.3 H ABG pO2 53.2 L ABG HCO3 30.2 H ABG O2 Saturation 88.6 L ABG Base Excess 5.4 FiO2 88% Sodium 139.1 Potassium 4.4 Chloride 101 Carbon Dioxide 31 H Anion Gap 7 BUN 13 Creatinine 0.78 Est GFR ( Amer) > 60 Glucose 97 Calcium 8.5 Total Bilirubin 1.4 H AST 18 Alkaline Phosphatase 121 Total Protein 5.9 L Albumin 3.5 Urine Color Urine Appearance Urine pH Ur Specific [place] Urine Protein Urine Glucose (UA) Urine Ketones Urine Blood Urine RBC (Auto) 05/24/20 05/24/20 13:05 18:30 WBC 10.1 RBC 3.88 Hgb 10.6 L Hct 33.1 L MCV 85 MCH 27.4 MCHC 32.1 RDW 18.9 H Plt Count 273 Seg Neutrophils % Carbonic Acid HCO3/H2CO3 Ratio ABG pH ABG pCO2 ABG pO2 ABG HCO3 ABG O2 Saturation ABG Base Excess FiO2 Sodium Potassium Chloride Carbon Dioxide Anion Gap BUN Creatinine Est GFR ( Amer) Glucose Calcium Total Bilirubin AST Alkaline Phosphatase Total Protein Albumin Urine Color YELLOW Urine Appearance CLEAR Urine pH 7.0 Ur Specific [place] 1.017 Urine Protein 30 H Urine Glucose (UA) NEGATIVE Urine Ketones NEGATIVE Urine Blood NEGATIVE Urine RBC (Auto) 12 05/24/20 05/24/20 11:30 11:33 Troponin I < 0.012 NT-Pro-B Natriuret Pep 2820 H Impressions: Chest X-Ray 05/24/20 10:55 IMPRESSION: Constellation findings most likely representing pulmonary edema in the setting of congestive heart failure. Recommend radiographic follow-up. 05/24/20 18:30 05/24/20 11:33 MCV 85 fl (80-97) 05/24/20 18:30 MCH 27.4 pg (27.0-33.4) 05/24/20 18:30 MCHC 32.1 g/dL (32.0-36.0) 05/24/20 18:30 RDW 18.9 % (11.5-14.0) H 05/24/20 18:30 Seg Neutrophils % 79.5 % (42-78) H 05/24/20 11:33 Carbonic Acid 1.36 mmol/L (1.05-1.35) H 05/24/20 11:33 HCO3/H2CO3 Ratio 22:1 05/24/20 11:33 ABG pH 7.44 (7.35-7.45) 05/24/20 11:33 ABG pCO2 45.3 mmHg (35-45) H 05/24/20 11:33 ABG pO2 53.2 mmHg (80-100) L 05/24/20 11:33 ABG HCO3 30.2 mmol/L (20-24) H 05/24/20 11:33 ABG O2 Saturation 88.6 % (94-98) L 05/24/20 11:33 ABG Base Excess 5.4 mmol/L 05/24/20 11:33 FiO2 88% 05/24/20 11:33 Chloride 101 mmol/L (98-107) 05/24/20 11:33 Carbon Dioxide 31 mmol/L (22-30) H 05/24/20 11:33 Anion Gap 7 (5-19) 05/24/20 11:33 Est GFR ( Amer) > 60 (>60) 05/24/20 11:33 Glucose 97 mg/dL (75-110) 05/24/20 11:33 Calcium 8.5 mg/dL (8.4-10.2) 05/24/20 11:33 Total Bilirubin 1.4 mg/dL (0.2-1.3) H 05/24/20 11:33 AST 18 U/L (14-36) 05/24/20 11:33 Alkaline Phosphatase 121 U/L (38-126) 05/24/20 11:33 Total Protein 5.9 g/dL (6.3-8.2) L 05/24/20 11:33 Albumin 3.5 g/dL (3.5-5.0) 05/24/20 11:33 Urine Color YELLOW 05/24/20 13:05 Urine Appearance CLEAR 05/24/20 13:05 Urine pH 7.0 (5.0-9.0) 05/24/20 13:05 Ur Specific [place] 1.017 05/24/20 13:05 Urine Protein 30 mg/dL (NEGATIVE) H 05/24/20 13:05 Urine Glucose (UA) NEGATIVE mg/dL (NEGATIVE) 05/24/20 13:05 Urine Ketones NEGATIVE mg/dL (NEGATIVE) 05/24/20 13:05 Urine Blood NEGATIVE (NEGATIVE) 05/24/20 13:05 Urine RBC (Auto) 12 /HPF 05/24/20 13:05 05/24/20 05/24/20 11:30 11:33 Troponin I < 0.012 NT-Pro-B Natriuret Pep 2820 H Current Medication List Generic Name Dose Route Start Last Admin Trade Name Freq PRN Reason Stop Dose Admin Acetaminophen 650 mg 05/24/20 17:16 Tylenol 325 Mg Tablet PO 06/23/20 17:15 Q6HP PRN FOR PAIN SCALE 1-3 Albuterol/Ipratropium 3 ml 05/24/20 17:26 Duoneb 3 Ml Ampul NEB 06/23/20 17:25 RTQ8HP PRN SHORTNESS OF BREATH Aspirin 81 mg 05/25/20 10:00 Ecotrin 81 Mg Ec Tablet PO 06/24/20 09:59 DAILY GAIL Atorvastatin Calcium 10 mg 05/24/20 22:00 05/24/20 21:44 Lipitor 10 Mg Tablet PO 06/23/20 21:59 10 mg QHS GAIL Administration Buspirone HCl 5 mg 05/24/20 18:00 05/25/20 05:52 Buspar 10 Mg Tablet PO 06/23/20 17:59 5 mg Q8 GAIL Administration Famotidine 20 mg 05/24/20 22:00 05/24/20 21:44 Pepcid 20 Mg Tablet PO 06/23/20 21:59 20 mg Q12 GAIL Administration Fluoxetine HCl 40 mg 05/25/20 10:00 Prozac 20 Mg Capsule PO 06/24/20 09:59 DAILY GAIL Furosemide 40 mg 05/24/20 18:00 05/24/20 18:09 Lasix Inj/Pf 40 Mg/4 Ml Sdv IV 06/23/20 17:59 40 mg BID GAIL Administration Gabapentin 100 mg 05/24/20 22:00 05/24/20 21:44 Neurontin 100 Mg Capsule PO 06/23/20 21:59 100 mg Q12 GAIL Administration Losartan Potassium 50 mg 05/25/20 10:00 Cozaar 50 Mg Tablet PO 06/24/20 09:59 DAILY [facility] Nadolol 80 mg 05/25/20 10:00 Corgard 40 Mg Tablet PO 06/24/20 09:59 DAILY [facility] Nitroglycerin 1 tab 05/24/20 17:16 Nitrostat 0.4 Mg (1/150 Gr) Tabs 25/Bottle SL 06/23/20 17:15 Q5MP PRN FOR CHEST PAIN Nystatin 1 applic 05/24/20 18:00 05/24/20 18:14 Mycostatin Cream 15 Gm TP 05/31/20 17:59 Not Given BID GAIL Ondansetron HCl 4 mg 05/24/20 17:16 Zofran Inj/Pf 4 Mg/2 Ml Sdv IV 06/23/20 17:15 Q6HP PRN FOR NAUSEA/VOMITING Oxycodone/Acetaminophen 1 tab 05/24/20 17:28 Percocet 5-325 Mg Tablet PO 05/31/20 17:27 Q6HP PRN FOR PAIN SCALE 4-5 Pantoprazole Sodium 20 mg 05/24/20 17:45 05/24/20 18:[address] Tablet PO 06/23/20 17:44 20 mg BIDACBL GAIL Administration Pharmacy Consult 1 dose 05/24/20 21:00 Warfarin Pharmacy To Dose PO 06/23/20 20:59 .PHARMACY TO DOSE [facility] Protocol Potassium Chloride 20 meq 05/25/20 10:00 Klor-Con 10 Meq Tablet Er PO 06/24/20 09:59 DAILY [facility] Sodium Chloride 2.5 ml 05/24/20 22:00 05/25/20 05:52 Saline Flush 2.5 Ml Monoject Prefil Syrin IV 06/23/20 21:59 2.5 ml Q8 GAIL Administration Trazodone HCl 50 mg 05/24/20 22:00 05/24/20 21:44 Desyrel 50 Mg Tablet PO 06/23/20 21:59 50 mg QHS GAIL Administration Discontinued Medications Generic Name Dose Route Start Last Admin Trade Name Freq PRN Reason Stop Dose Admin Acetaminophen 650 mg 05/24/20 11:29 05/24/20 11:44 Tylenol 325 Mg Tablet PO 05/24/20 11:30 650 mg NOW ONE Administration Fluoxetine HCl 40 mg 05/24/20 17:28 05/24/20 18:09 Prozac 20 Mg Capsule PO 05/24/20 17:29 40 mg NOW ONE Administration Furosemide 20 mg 05/24/20 13:00 05/24/20 14:25 Lasix Inj/Pf 20 Mg/2 Ml Sdv IV 05/24/20 13:01 20 mg NOW ONE Administration Losartan Potassium 50 mg 05/24/20 17:39 05/24/20 18:09 Cozaar 50 Mg Tablet PO 05/24/20 17:40 50 mg NOW ONE Administration Assessment & Plan - Diagnosis (1) Acute congestive heart failure Qualifiers: Heart failure type: unspecified Qualified Code(s): I50.9 - Heart failure, unspecified Is this a current diagnosis for this admission?: Yes Plan: Likely multifactorial but unknown type yet. She has no evidence of acute cardiac ischemia at this point but she is fluid overloaded however she has responded well to lasix IV and her fluid balance is -2.3L. Recommendations: -Continue diuresis with lasix IV at current doses for now. -Strict intake and output. -Restrict fluid intake to 1.5L daily. -Low sodium, <1500mg daily. -Daily BMP and Mg and replace electrolytes as needed. -Echocardiogram as requested. (2) CAD (coronary artery disease) Is this a current diagnosis for this admission?: Yes Plan: No ischemic symptoms currently and no details of her CAD. I spoke with her daughter via phone who stated that she had several cardiac caths without significant blockages and she did have small vessels. Recommendations: -Continue with current management for now. -Will discuss further work up with the patient once she is not fluid overloaded. (3) Hypertension Qualifiers: Hypertension type: essential hypertension Qualified Code(s): I10 - Es sential (primary) hypertension Is this a current diagnosis for this admission?: Yes Plan: Her blood pressure is above her goal of 130/80 or below however she was just started on losartan. Recommendations: -Continue with current management for now. -I will defer further management to primary team.
--- NOTE | 2020-05-25 18:41 | PDOC PROGRESS REPORT ---
Subjective Progress Note for:: 05/25/20 Subjective:: Still feels about the same in terms of shortness of breath. She denies any chest pain at the time. Denies nausea vomiting. Denies lightheadedness. Still having pain in her shoulder and scapula. Reason For Visit: HEART FAILURE Physical Exam Vital Signs: Temp Pulse Resp BP Pulse Ox 98.0 F 79 17 142/62 H 93 05/25/20 00:03 05/25/20 07:00 05/25/20 00:03 05/25/20 00:03 05/25/20 00:03 Intake & Output 05/24/20 05/25/20 05/26/20 06:59 06:59 06:59 Output Total 2300 Balance -2300 Weight 68.8 kg General appearance: PRESENT: no acute distress, cooperative Neck exam: PRESENT: JVD Respiratory exam: PRESENT: crackles, symmetrical, unlabored. ABSENT: tachypnea, wheezes Cardiovascular exam: PRESENT: RRR, +S1, +S2. ABSENT: tachycardia GI/Abdominal exam: PRESENT: soft. ABSENT: tenderness Extremities exam: PRESENT: +2 edema Neurological exam: PRESENT: alert, awake Psychiatric exam: ABSENT: agitated, anxious Results Laboratory Results: 05/25/20 07:25 05/25/20 07:25 05/24/20 05/25/20 05/25/20 18:30 07:25 07:25 WBC 10.1 9.0 RBC 3.88 3.69 L Hgb 10.6 L 10.1 L Hct 33.1 L 31.3 L MCV 85 85 MCH 27.4 27.5 MCHC 32.1 32.5 RDW 18.9 H 18.6 H Plt Count 273 252 Seg Neutrophils % 78.8 H Sodium 141.1 Potassium 3.7 Chloride 98 Carbon Dioxide 33 H Anion Gap 10 BUN 13 Creatinine 0.67 Est GFR ( Amer) > 60 Glucose 76 Calcium 8.4 Magnesium 1.8 Total Bilirubin 1.5 H AST 16 Alkaline Phosphatase 111 Total Protein 5.2 L Albumin 3.4 L Triglycerides 87 Cholesterol 164.31 LDL Cholesterol Direct 115 H VLDL Cholesterol 17.0 HDL Cholesterol 31 L 05/24/20 05/24/20 11:30 11:33 Troponin I < 0.012 NT-Pro-B Natriuret Pep 2820 H Impressions: Chest X-Ray 05/24/20 10:55 IMPRESSION: Constellation findings most likely representing pulmonary edema in the setting of congestive heart failure. Recommend radiographic follow-up. Assessment and Plan - Diagnosis (1) Acute congestive heart failure Qualifiers: Heart failure type: unspecified Qualified Code(s): I50.9 - Heart failure, unspecified Is this a current diagnosis for this admission?: Yes Plan: In decompensated heart failure. Continue IV diuresis with Lasix 2 times daily. Cardiology c following Placed on telemetry Fluid restriction Strict I's and O's Check echocardiogram for EF evaluation (2) Hypoxia Is this a current diagnosis for this admission?: Yes Plan: initially 88% on room air on initial presentation and required 2 L nasal cannula. Currently satting well on room air on my evaluation. Likely was secondary to pulmonary edema. (3) Hypertension Qualifiers: Hypertension type: essential hypertension Qualified Code(s): I10 - Essential (primary) hypertension Is this a current diagnosis for this admission?: Yes Plan: Noted to be hypertensive here. Daughter denies history of hypertension however. 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 Continue gabapentin. (5) Atrial fibrillation Qualifiers: Atrial fibrillation type: unspecified chronic Qualified Code(s): I48.20 - Chronic atrial fibrillation, unspecified; I48.2 - Chronic atrial fibrillation Is this a current diagnosis for this admission?: Yes Plan: Currently in A. fib her rate is controlled. Uncertain why specifically on nadolol but will continue nadolol. Continue Coumadin. Goal INR 2-3 (6) CAD (coronary artery disease) Is this a current diagnosis for this admission?: Yes - Time Time Spent with patient: Less than 15 minutes Anticipated Discharge Disposition: Home, Self Care Anticipated Discharge Timeframe: within 48 hours
[2020-05-25] MEDS: TRAZODONE HCL 50 MG TABLET PO SCH (21:03)
[2020-05-25] MEDS: ATORVASTATIN CALCIUM 10 MG TABLET PO SCH (21:03)
[2020-05-25] MEDS: MELATONIN 5 MG TABLET PO SCH (21:03)
[2020-05-25] MEDS: ACETAMINOPHEN 325 MG TABLET PO PRN (21:04)
[2020-05-25] MEDS ORDERED: WARFARIN SODIUM 3 MG TABLET PO SCH (22:00)
[2020-05-26] MEDS ORDERED: METOPROLOL TARTRATE PF/INJ 5 MG/5 ML SDV IV PRN (02:13)
[2020-05-26] MEDS: BUSPIRONE HCL 10 MG TABLET PO SCH ×3 (05:43→22:32)
[2020-05-26 07:36] LABS: ABSOLUTE BASOPHILS # (AUTO) 0.1 10^3/uL (0.0-0.2); ABSOLUTE EOSINOPHILS # (AUTO) 0.3 10^3/uL (0.0-0.6); ABSOLUTE LYMPHOCYTES (AUTO) 0.9 10^3/uL (0.5-4.7); ABSOLUTE MONOCYTES (AUTO) 0.9 10^3/uL (0.1-1.4); ABSOLUTE NEUT (AUTO) 6.5 10^3/uL (1.7-8.2); BASOPHILS % (AUTO) 0.6 % (0-2); EOSINOPHILS % (AUTO) 3.3 % (0-6); HEMATOCRIT 30.9 % (36.0-47.0); LYMPHOCYTES % (AUTO) 10.6 % (13-45); MEAN CORPUSCULAR HEMOGLOBIN 27.5 pg (27.0-33.4); MEAN CORPUSCULAR HGB CONC 32.3 g/dL (32.0-36.0); MEAN CORPUSCULAR VOLUME 85 fl (80-97); MONOCYTES % (AUTO) 10.2 % (3-13); PLATELET COUNT 251 10^3/uL (150-450); RED BLOOD COUNT 3.62 10^6/uL (3.72-5.28); RED CELL DISTRIBUTION WIDTH 18.6 % (11.5-14.0); SEGMENTED NEUTROPHILS % (AUTO) 75.3 % (42-78); TOTAL CELLS COUNTED % (AUTO) 100 %; WHITE BLOOD COUNT 8.6 10^3/uL (4.0-10.5)
[2020-05-26 07:50] LABS: INTERNATIONAL RATION (INR) 1.38; PROTHROMBIN TIME 17.1 SEC (11.4-15.4)
[2020-05-26 07:56] LABS: ANION GAP 7 (5-19); BLOOD UREA NITROGEN 15 mg/dL (7-20); CALCIUM 8.1 mg/dL (8.4-10.2); CARBON DIOXIDE 36 mmol/L (22-30); CHLORIDE 97 mmol/L (98-107); GLUCOSE 85 mg/dL (75-110); POTASSIUM 3.1 mmol/L (3.6-5.0)
[2020-05-26 08:47] LABS: APPEARANCE,URINE CLEAR; BILIRUBIN,URINE NEGATIVE (NEGATIVE); COLOR,URINE YELLOW; GLUCOSE, URINE NEGATIVE (NEGATIVE); KETONES,URINE NEGATIVE (NEGATIVE); LEUKOCYTE ESTERASE,URINE NEGATIVE (NEGATIVE); NITRITE,URINE NEGATIVE (NEGATIVE); PROTEIN,URINE NEGATIVE (NEGATIVE); URINE SPECIFIC GRAVITY 1.006; UROBILINOGEN,URINE NEGATIVE mg/dL (<2.0)
[2020-05-26] MEDS: FAMOTIDINE 20 MG TABLET PO SCH ×2 (09:27→22:32)
[2020-05-26] MEDS: ASPIRIN 81 MG TABLET, ENT COATED PO SCH (09:27)
[2020-05-26] MEDS: OXYCODONE-ACETAMINOPHEN 5-325 MG TABLET PO PRN (09:27)
[2020-05-26] MEDS: GABAPENTIN 100 MG CAPSULE PO SCH ×2 (09:28→22:31)
[2020-05-26] MEDS: POTASSIUM CHLORIDE 10 MEQ TABLET.ER PO SCH ×2 (09:28→22:31)
[2020-05-26] MEDS: PANTOPRAZOLE SODIUM 20 MG TABLET.DR PO SCH ×2 (09:28→10:54)
[2020-05-26] MEDS: FUROSEMIDE INJ/PF 40 MG/4 ML SDV IV SCH (09:29)
[2020-05-26] MEDS: FLUOXETINE HCL 20 MG CAPSULE PO SCH (09:29)
[2020-05-26] MEDS: LOSARTAN POTASSIUM 50 MG TABLET PO SCH (09:29)
[2020-05-26] MEDS: NYSTATIN CREAM 15 GM TP SCH ×2 (09:33→17:32)
[2020-05-26] MEDS: NADOLOL 40 MG TABLET PO SCH (09:33)
[2020-05-26] MEDS ORDERED: MAGNESIUM OXIDE 400 MG TABLET PO ONE (10:00)
--- NOTE | 2020-05-26 10:10 | PDOC PROGRESS REPORT ---
Subjective Progress Note for:: 05/26/20 Subjective:: CHANCE RUBIO is an 85 year old female with history of atrial fibrillation, MVP, CAD of unknown extension however she denies cardiac interventions, congestive heart failure, hyperlioidemia, shingles, winged scapula and neuropathic shoulder pain, who is consulted to our service for evaluation and treatment of heart failure. The patient initially presented to our ED on 05/10/20 for evaluation of shortness of breath. At that time she was diagnosed with pneumonia and was sent home. Her symptoms continued to worsen therefore she presented yesterday for further evaluation. Since admission she is -2.3L and feels better. She has no cardiac complaints today. 05/26/2020: The patient is currently sleeping comfortable in her bed and in no acute distress. Her ysrvgelb-af-asa states that she was up all night but had no cardiovascular complaints. Her fluid balance is -3394 mL. Her echocardiogram is pending and her telemetry shows controlled atrial fibrillation. Physical exam on 05/26/2020: GENERAL: Sleeping comfortably. Not in acute distress. Well groomed and well developed. HEENT: Normocephalic, atraumatic. Pupils equal. Sclerae anicteric. Oropharynx moist. NECK: No JVD. No carotid bruits. LUNGS: Clear to auscultation bilaterally. Normal respiratory effort without the use of accessory muscles or intercostal retractions. CARDIOVASCULAR: Irregularly irregular rate and rhythm, normal S1 and S2 without murmurs, rubs, or gallops. PMI not displaced. EXTREMITIES: Trace to 1+ pitting edema bilaterally, no cyanosis, no clubbing. +2 pulses femoral and pedal pulses bilaterally. SKIN: No lesions or rashes. MUSCULOSKELETAL: No chest tenderness to palpation. Reason For Visit: HEART FAILURE Physical Exam Vital Signs: Temp Pulse Resp BP Pulse Ox 97.5 F 85 18 111/47 L 97 05/26/20 00:25 05/26/20 02:00 05/26/20 00:25 05/26/20 00:25 05/26/20 00:25 Intake & Output 05/24/20 05/25/20 05/26/20 06:59 06:59 06:59 Intake Total 606 Output Total 2300 1800 Balance -2300 -1194 Weight 68.8 kg Results Laboratory Results: 05/25/20 07:25 05/25/20 07:25 05/25/20 05/25/20 07:25 07:25 WBC 9.0 RBC 3.69 L Hgb 10.1 L Hct 31.3 L MCV 85 MCH 27.5 MCHC 32.5 RDW 18.6 H Plt Count 252 Seg Neutrophils % 78.8 H Sodium 141.1 Potassium 3.7 Chloride 98 Carbon Dioxide 33 H Anion Gap 10 BUN 13 Creatinine 0.67 Est GFR ( Amer) > 60 Glucose 76 Calcium 8.4 Magnesium 1.8 Total Bilirubin 1.5 H AST 16 Alkaline Phosphatase 111 Total Protein 5.2 L Albumin 3.4 L Triglycerides 87 Cholesterol 164.31 LDL Cholesterol Direct 115 H VLDL Cholesterol 17.0 HDL Cholesterol 31 L 05/24/20 05/24/20 11:30 11:33 Troponin I < 0.012 NT-Pro-B Natriuret Pep 2820 H Impressions: Chest X-Ray 05/24/20 10:55 IMPRESSION: Constellation findings most likely representing pulmonary edema in the setting of congestive heart failure. Recommend radiographic follow-up. 05/25/20 07:25 05/25/20 07:25 MCV 85 fl (80-97) 05/25/20 07:25 MCH 27.5 pg (27.0-33.4) 05/25/20 07:25 MCHC 32.5 g/dL (32.0-36.0) 05/25/20 07:25 RDW 18.6 % (11.5-14.0) H 05/25/20 07:25 Seg Neutrophils % 78.8 % (42-78) H 05/25/20 07:25 Carbonic Acid 1.36 mmol/L (1.05-1.35) H 05/24/20 11:33 HCO3/H2CO3 Ratio 22:1 05/24/20 11:33 ABG pH 7.44 (7.35-7.45) 05/24/20 11:33 ABG pCO2 45.3 mmHg (35-45) H 05/24/20 11:33 ABG pO2 53.2 mmHg (80-100) L 05/24/20 11:33 ABG HCO3 30.2 mmol/L (20-24) H 05/24/20 11:33 ABG O2 Saturation 88.6 % (94-98) L 05/24/20 11:33 ABG Base Excess 5.4 mmol/L 05/24/20 11:33 FiO2 88% 05/24/20 11:33 Chloride 98 mmol/L (98-107) 05/25/20 07:25 Carbon Dioxide 33 mmol/L (22-30) H 05/25/20 07:25 Anion Gap 10 (5-19) 05/25/20 07:25 Est GFR ( Amer) > 60 (>60) 05/25/20 07:25 Glucose 76 mg/dL (75-110) 05/25/20 07:25 Calcium 8.4 mg/dL (8.4-10.2) 05/25/20 07:25 Magnesium 1.8 mg/dL (1.6-2.3) 05/25/20 07:25 Total Bilirubin 1.5 mg/dL (0.2-1.3) H 05/25/20 07:25 AST 16 U/L (14-36) 05/25/20 07:25 Alkaline Phosphatase 111 U/L (38-126) 05/25/20 07:25 Total Protein 5.2 g/dL (6.3-8.2) L 05/25/20 07:25 Albumin 3.4 g/dL (3.5-5.0) L 05/25/20 07:25 Triglycerides 87 mg/dL (<150) 05/25/20 07:25 Cholesterol 164.31 mg/dL (0-200) 05/25/20 07:25 LDL Cholesterol Direct 115 mg/dL (<100) H 05/25/20 07:25 VLDL Cholesterol 17.0 mg/dL (10-31) 05/25/20 07:25 HDL Cholesterol 31 mg/dL (>40) L 05/25/20 07:25 Urine Color YELLOW 05/24/20 13:05 Urine Appearance CLEAR 05/24/20 13:05 Urine pH 7.0 (5.0-9.0) 05/24/20 13:05 Ur Specific [place] 1.017 05/24/20 13:05 Urine Protein 30 mg/dL (NEGATIVE) H 05/24/20 13:05 Urine Glucose (UA) NEGATIVE mg/dL (NEGATIVE) 05/24/20 13:05 Urine Ketones NEGATIVE mg/dL (NEGATIVE) 05/24/20 13:05 Urine Blood NEGATIVE (NEGATIVE) 05/24/20 13:05 Urine RBC (Auto) 12 /HPF 05/24/20 13:05 05/24/20 05/24/20 11:30 11:33 Troponin I < 0.012 NT-Pro-B Natriuret Pep 2820 H Current Medication List Generic Name Dose Route Start Last Admin Trade Name Freq PRN Reason Stop Dose Admin Acetaminophen 650 mg 05/24/20 17:16 05/25/20 21:04 Tylenol 325 Mg Tablet PO 06/23/20 17:15 650 mg Q6HP PRN Administration FOR PAIN SCALE 1-3 Albuterol/Ipratropium 3 ml 05/24/20 17:26 Duoneb 3 Ml Ampul NEB 06/23/20 17:25 RTQ8HP PRN SHORTNESS OF BREATH Aspirin 81 mg 05/25/20 10:00 05/25/20 09:37 Ecotrin 81 Mg Ec Tablet PO 06/24/20 09:59 81 mg DAILY GAIL Administration Atorvastatin Calcium 10 mg 05/24/20 22:00 05/25/20 21:03 Lipitor 10 Mg Tablet PO 06/23/20 21:59 10 mg QHS GAIL Administration Buspirone HCl 5 mg 05/24/20 18:00 05/26/20 05:43 Buspar 10 Mg Tablet PO 06/23/20 17:59 5 mg Q8 GAIL Administration Famotidine 20 mg 05/24/20 22:00 05/25/20 21:02 Pepcid 20 Mg Tablet PO 06/23/20 21:59 20 mg Q12 GAIL Administration Fluoxetine HCl 40 mg 05/25/20 10:00 05/25/20 09:38 Prozac 20 Mg Capsule PO 06/24/20 09:59 40 mg DAILY GAIL Administration Furosemide 40 mg 05/24/20 18:00 05/25/20 17:59 Lasix Inj/Pf 40 Mg/4 Ml Sdv IV 06/23/20 17:59 40 mg BID GAIL Administration Gabapentin 100 mg 05/24/20 22:00 05/25/20 21:03 Neurontin 100 Mg Capsule PO 06/23/20 21:59 100 mg Q12 GAIL Administration Losartan Potassium 50 mg 05/25/20 10:00 05/25/20 09:37 Cozaar 50 Mg Tablet PO 06/24/20 09:59 50 mg DAILY GAIL Administration Melatonin 10 mg 05/25/20 22:00 05/25/20 21:03 Melatonin 5 Mg Tablet PO 06/24/20 21:59 10 mg QHS GAIL Administration Metoprolol Tartrate 2.5 mg 05/26/20 02:13 Lopressor Inj/Pf 5 Mg/5 Ml Sdv IV 06/25/20 02:12 Q6HP PRN Give For Hr > [140] Nadolol 80 mg 05/25/20 10:00 05/25/20 09:39 Corgard 40 Mg Tablet PO 06/24/20 09:59 80 mg DAILY GAIL Administration Nitroglycerin 1 tab 05/24/20 17:16 Nitrostat 0.4 Mg (1/150 Gr) Tabs 25/Bottle SL 06/23/20 17:15 Q5MP PRN FOR CHEST PAIN Nystatin 1 applic 05/24/20 18:00 05/25/20 18:12 Mycostatin Cream 15 Gm TP 05/31/20 17:59 Not Given BID GAIL Ondansetron HCl 4 mg 05/24/20 17:16 Zofran Inj/Pf 4 Mg/2 Ml Sdv IV 06/23/20 17:15 Q6HP PRN FOR NAUSEA/VOMITING Oxycodone/Acetaminophen 1 tab 05/24/20 17:28 05/25/20 17:58 Percocet 5-325 Mg Tablet PO 05/31/20 17:27 1 tab Q6HP PRN Administration FOR PAIN SCALE 4-5 Pantoprazole Sodium 20 mg 05/24/20 17:45 05/25/20 13:[address] Tablet PO 06/23/20 17:44 20 mg BIDACBL GAIL Administration Potassium Chloride 20 meq 05/25/20 10:00 05/25/20 09:38 Klor-Con 10 Meq Tablet Er PO 06/24/20 09:59 20 meq DAILY GAIL Administration Sodium Chloride 2.5 ml 05/24/20 22:00 05/26/20 05:43 Saline Flush 2.5 Ml Monoject Prefil Syrin IV 06/23/20 21:59 2.5 ml Q8 GAIL Administration Trazodone HCl 50 mg 05/24/20 22:00 05/25/20 21:03 Desyrel 50 Mg Tablet PO 06/23/20 21:59 50 mg QHS GAIL Administration Warfarin Sodium 3 mg 05/25/20 22:00 05/25/20 21:05 Jantoven 3 Mg Tablet PO 06/24/20 21:59 3 mg QHS GAIL Administration Discontinued Medications Generic Name Dose Route Start Last Admin Trade Name Alyssa PRQuinn Reason Stop Dose Admin Acetaminophen 650 mg 05/24/20 11:29 05/24/20 11:44 Tylenol 325 Mg Tablet PO 05/24/20 11:30 650 mg NOW ONE Administration Fluoxetine HCl 40 mg 05/24/20 17:28 05/24/20 18:09 Prozac 20 Mg Capsule PO 05/24/20 17:29 40 mg NOW ONE Administration Furosemide 20 mg 05/24/20 13:00 05/24/20 14:25 Lasix Inj/Pf 20 Mg/2 Ml Sdv IV 05/24/20 13:01 20 mg NOW ONE Administration Losartan Potassium 50 mg 05/24/20 17:39 05/24/20 18:09 Cozaar 50 Mg Tablet PO 05/24/20 17:40 50 mg NOW ONE Administration Pharmacy Consult 1 dose 05/24/20 21:00 Warfarin Pharmacy To Dose PO 06/23/20 20:59 .PHARMACY TO DOSE [facility] Protocol Assessment & Plan - Diagnosis (1) Acute congestive heart failure Qualifiers: Heart failure type: unspecified Qualified Code(s): I50.9 - Heart failure, unspecified Is this a current diagnosis for this admission?: Yes Plan: Likely multifactorial but unknown type yet. She does admit to a high sodium diet. She has no evidence of acute cardiac ischemia at this point but she is fluid overloaded however she has responded well to lasix IV and her fluid balance is - 3.4 L. She is hypokalemic however her renal function is within normal limits. I believe at this point she can be switched to p.o. Lasix. Recommendations: -Discontinue IV Lasix. -Transition to p.o. Lasix 40 mg daily. -Replace potassium. -Strict intake and output. -Restrict fluid intake to 1.5L daily. -Low sodium, <1500mg daily. -Daily BMP and Mg and replace electrolytes as needed. (2) CAD (coronary artery disease) Is this a current diagnosis for this admission?: Yes Plan: No ischemic symptoms currently and no details of her CAD. I spoke with her daughter via phone who stated that she had several cardiac caths without signi ficant blockages and she did have small vessels. Recommendations: -Continue with current management for now. -Will discuss further work up with the patient once she is not fluid overloaded. (3) Hypertension Qualifiers: Hypertension type: essential hypertension Qualified Code(s): I10 - Essential (primary) hypertension Is this a current diagnosis for this admission?: Yes Plan: Her blood pressure is now at goal. Recommendations: -Continue with current management for now. -I will defer further management to primary team.
[2020-05-26] MEDS: POTASSI CL 20 MEQ/50 ML RIDER 20 MEQ/50 ML RTUPB IV SCH ×2 (10:55→13:15)
[2020-05-26 11:10] LABS: VENOUS BLOOD BASE EXCESS 6.8 mmol/L; VENOUS BLOOD HCO3 32.6 mmol/L (20-32); VENOUS BLOOD PCO2 52.1 mmHg (35-63); VENOUS BLOOD PH 7.41 (7.30-7.42)
[2020-05-26] MEDS: ACETAMINOPHEN 325 MG TABLET PO PRN ×2 (13:18→22:29)
--- NOTE | 2020-05-26 16:52 | PDOC PROGRESS REPORT ---
Subjective Progress Note for:: 05/26/20 Subjective:: Patient feels better in terms of her breathing. She cracks jokes this morning. She denies any chest pain. She is still having pain in her back and neck. Reason For Visit: HEART FAILURE Physical Exam Vital Signs: Temp Pulse Resp BP Pulse Ox 98.7 F 80 16 102/70 92 05/26/20 12:00 05/26/20 14:27 05/26/20 14:27 05/26/20 12:00 05/26/20 14:27 Intake & Output 05/25/20 05/26/20 05/27/20 06:59 06:59 06:59 Intake Total 606 572 Output Total 2300 1800 400 Balance -2300 -1194 172 Weight 68.8 kg 68.9 kg General appearance: PRESENT: no acute distress, cooperative, hard of hearing Neck exam: ABSENT: JVD Respiratory exam: PRESENT: crackles, symmetrical, unlabored. ABSENT: tachypnea, wheezes Cardiovascular exam: PRESENT: RRR, +S1, +S2. ABSENT: tachycardia GI/Abdominal exam: PRESENT: soft. ABSENT: rebound, rigid, tenderness Extremities exam: PRESENT: +1 edema Neurological exam: PRESENT: alert, awake, other - Conversational Results Laboratory Results: 05/26/20 06:20 05/26/20 06:20 05/26/20 05/26/20 05/26/20 06:20 06:20 08:15 WBC 8.6 RBC 3.62 L Hgb 10.0 L Hct 30.9 L MCV 85 MCH 27.5 MCHC 32.3 RDW 18.6 H Plt Count 251 Seg Neutrophils % 75.3 VBG pH VBG pCO2 VBG HCO3 VBG Base Excess Sodium 140.4 Potassium 3.1 L Chloride 97 L Carbon Dioxide 36 H Anion Gap 7 BUN 15 Creatinine 0.79 Est GFR ( Amer) > 60 Glucose 85 Calcium 8.1 L Magnesium 1.7 Urine Color YELLOW Urine Appearance CLEAR Urine pH 5.0 Ur Specific [place] 1.006 Urine Protein NEGATIVE Urine Glucose (UA) NEGATIVE Urine Ketones NEGATIVE Urine Blood SMALL H Urine Nitrite NEGATIVE Ur Leukocyte Esterase NEGATIVE Urine WBC (Auto) 1 Urine RBC (Auto) 0 05/26/20 10:55 WBC RBC Hgb Hct MCV MCH MCHC RDW Plt Count Seg Neutrophils % VBG pH 7.41 VBG pCO2 52.1 VBG HCO3 32.6 H VBG Base Excess 6.8 Sodium Potassium Chloride Carbon Dioxide Anion Gap BUN Creatinine Est GFR ( Amer) Glucose Calcium Magnesium Urine Color Urine Appearance Urine pH Ur Specific [place] Urine Protein Urine Glucose (UA) Urine Ketones Urine Blood Urine Nitrite Ur Leukocyte Esterase Urine WBC (Auto) Urine RBC (Auto) 05/24/20 13:05 Clean Catch Midstream Urine Culture - Final 3,000 col/ml 05/24/20 05/24/20 11:30 11:33 Troponin I < 0.012 NT-Pro-B Natriuret Pep 2820 H Impressions: Chest X-Ray 05/24/20 10:55 IMPRESSION: Constellation findings most likely representing pulmonary edema in the setting of congestive heart failure. Recommend radiographic follow-up. Assessment and Plan - Diagnosis (1) Acute congestive heart failure Qualifiers: Heart failure type: unspecified Qualified Code(s): I50.9 - Heart failure, unspecified Is this a current diagnosis for this admission?: Yes Plan: Improved Cardiology following and recommending de-escalation of diuresis to Lasix p.o. 40 daily Echocardiogram done. Awaiting results. Received repletion's with IV and p.o. potassium this morning and will get p.o. potassium again tonight. (2) Hypoxia Is this a current diagnosis for this admission?: Yes Plan: Resolved at this point on room air. (3) Hypertension Qualifiers: Hypertension type: essential hypertension Qualified Code(s): I10 - Essential (primary) hypertension Is this a current diagnosis for this admission?: Yes Plan: Noted to be hypertensive here. Daughter denies history of hypertension however. 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 Continue gabapentin. Also takes Percocet. (5) Atrial fibrillation Qualifiers: Atrial fibrillation type: unspecified chronic Qualified Code(s): I48.20 - Chronic atrial fibrillation, unspecified; I48.2 - Chronic atrial fibrillation Is this a current diagnosis for this admission?: Yes Plan: Currently in A. fib her rate is controlled. Uncertain why specifically on nadolol but will continue nadolol. Continue Coumadin. INR is subtherapeutic so we will give a higher dose tonight. Goal INR 2-3 (6) CAD (coronary artery disease) Is this a current diagnosis for this admission?: Yes Plan: continue ASA, statin and SL nitro prn. LDL still high. Increased atorvastatin to 20. - Time Time Spent with patient: Less than 15 minutes Anticipated Discharge Disposition: Home, Self Care Anticipated Discharge Timeframe: within 24 hours
--- NOTE | 2020-05-26 18:43 | XCELERA REPORT ---
[address] [address] Transthoracic Echocardiogram Report Name: CHANCE RUBIO Age: 85 yrs Gender: Female : 1935 Patient Status: Inpatient Patient Location: [address] [place] [address] Study Date: 05/26/2020 10:46 AM Height: 65 in Weight: 153 lb BSA: 1.8 m2 Procedure: A complete two-dimensional transthoracic echocardiogram was performed (2D, M-mode, spectral and color flow Doppler). The study was technically difficult with many images being suboptimal in quality. The apical views were difficult to obtain and are suboptimal in quality. [facility] Ordering Physician: RAUL ANGELES Performed By: Jannet Liu Interpretation Summary The left ventricle is grossly normal size. The left ventricular ejection fraction is normal. The Ejection Fraction estimate is 60-65%. LV diastolic function could not be adequately assessed due to atrial fibrilation. Regional wall motion abnormalities cannot be excluded due to limited visualization. Thrombus can not be excluded. LV diastolic function could not be adequately assessed due to atrial fibrilation. Severe biatrial enlargement. Mild to moderate MR, moderate TR, trace PI Mild to moderate pulmonary hypertension and estimated to be between 48 and 53 mmHg. No prior studies for comparison. MMode/2D Measurements & Calculations RVDd: 2.6 cm LVIDd: 4.1 cm FS: 33.8 % Ao root diam: 2.9 cm IVSd: 1.1 cm LVIDs: 2.7 cm EDV(Teich): 75.0 ml Ao root area: 6.6 cm2 LVPWd: 1.0 cm ESV(Teich): 27.7 ml EF(Teich): 63.1 % Doppler Measurements & Calculations Ao V2 max: LV V1 max PG: MR max anny: PA V2 max: 99.9 cm/sec 3.0 mmHg 402.2 cm/sec 86.1 cm/sec Ao max P.0 mmHg LV V1 max: MR max PG: PA max P.1 cm/sec 64.7 mmHg 3.0 mmHg LV dP/dt: 702.1 mmHg/s PI end-d anny: TR max anny: 157.8 cm/sec 283.6 cm/sec TR max P.2 mmHg Left Ventricle The left ventricle is grossly normal size. The left ventricular ejection fraction is normal. The Ejection Fraction estimate is 60-65%. LV diastolic function could not be adequately assessed due to atrial fibrilation. Regional wall motion abnormalities cannot be excluded due to limited visualization. Thrombus can not be excluded. Right Ventricle The right ventricle is not well visualized secondary to technical limitations. The right ventricular systolic function is normal. Atria The right atrium is severely dilated. The left atrium is severely dilated. Can not rule out ASD/PFO due to limited subcostal views. Mitral Valve There is mild mitral leaflet calcification. There is no mitral valve stenosis. There is a mild to moderate amount of mitral regurgitation. Aortic Valve The aortic valve is mildly calcified. There is no aortic valve stenosis. No aortic regurgitation is present. Tricuspid Valve The tricuspid is normal in structure and function. There is a moderate amount of tricuspid regurgitation. Best estimated right ventricular systolic pressure is elevated at 40-50mmHg. Pulmonic Valve The pulmonic valve is not well visualized. There is a trace or physiologic amount of pulmonic regurgitation. Great Vessels The inferior vena cava appeared dilated and decreased < 50% with respiration (RAP 15-20 mmHg). Effusions There is no pericardial effusion. There is no pleural effusion. : RAUL ANGELES Antonio
[2020-05-26] MEDS ORDERED: WARFARIN SODIUM 4 MG TABLET PO SCH (22:00)
[2020-05-26] MEDS ORDERED: ATORVASTATIN CALCIUM 20 MG TABLET PO SCH (22:00)
[2020-05-26] MEDS ORDERED: ATORVASTATIN CALCIUM 10 MG TABLET PO SCH (22:00)
[2020-05-26] MEDS: TRAZODONE HCL 50 MG TABLET PO SCH (22:31)
[2020-05-26] MEDS: MELATONIN 5 MG TABLET PO SCH (22:33)
[2020-05-26] MEDS: IPRATROPIUM/ALBUTEROL 0.5-2.5 MG/3 ML AMPUL NEB PRN (23:52)
[2020-05-27 00:33] VITALS: BP 144/79
[2020-05-27 06:39] LABS: INTERNATIONAL RATION (INR) 1.68; PROTHROMBIN TIME 19.9 SEC (11.4-15.4)
[2020-05-27 06:51] LABS: ANION GAP 7 (5-19); BLOOD UREA NITROGEN 19 mg/dL (7-20); CALCIUM 8.2 mg/dL (8.4-10.2); CARBON DIOXIDE 31 mmol/L (22-30); CHLORIDE 103 mmol/L (98-107); GLUCOSE 85 mg/dL (75-110)
[2020-05-27] MEDS: BUSPIRONE HCL 10 MG TABLET PO SCH ×2 (07:04→13:53)
[2020-05-27] MEDS: PANTOPRAZOLE SODIUM 20 MG TABLET.DR PO SCH ×2 (08:19→10:57)
[2020-05-27] MEDS: OXYCODONE-ACETAMINOPHEN 5-325 MG TABLET PO PRN (08:19)
[2020-05-27] MEDS: IPRATROPIUM/ALBUTEROL 0.5-2.5 MG/3 ML AMPUL NEB PRN (09:07)
[2020-05-27] MEDS: GABAPENTIN 100 MG CAPSULE PO SCH (09:25)
[2020-05-27] MEDS: NYSTATIN CREAM 15 GM TP SCH (09:26)
[2020-05-27] MEDS: ASPIRIN 81 MG TABLET, ENT COATED PO SCH (09:26)
[2020-05-27] MEDS: FLUOXETINE HCL 20 MG CAPSULE PO SCH (09:26)
[2020-05-27] MEDS: LOSARTAN POTASSIUM 50 MG TABLET PO SCH (09:26)
[2020-05-27] MEDS: FAMOTIDINE 20 MG TABLET PO SCH (09:26)
--- NOTE | 2020-05-27 09:44 | PDOC PROGRESS REPORT ---
Subjective Progress Note for:: 05/27/20 Subjective:: CHANCE RUBIO is an 85 year old female with history of atrial fibrillation, MVP, CAD of unknown extension however she denies cardiac interventions, congestive heart failure, hyperlioidemia, shingles, winged scapula and neuropathic shoulder pain, who is consulted to our service for evaluation and treatment of heart failure. The patient initially presented to our ED on 05/10/20 for evaluation of shortness of breath. At that time she was diagnosed with pneumonia and was sent home. Her symptoms continued to worsen therefore she presented yesterday for further evaluation. Since admission she is -2.3L and feels better. She has no cardiac complaints today. 05/27/2020: The patient had an uneventful night and is currently sleeping comfortable however she is easily arousable and denies new cardiac complaints. She actually feels improved and much better. -3.3 L. Her echocardiogram demonstrated a preserved ejection fraction among other findings which were discussed with her [id number] this morning. Her telemetry shows her fibrillation with a controlled ventricular response. Physical exam on 05/27/2020: GENERAL: Sleeping comfortably, easily arousable. Not in acute distress. Well groomed and well developed. HEENT: Normocephalic, atraumatic. Pupils equal. Sclerae anicteric. Oropharynx moist. NECK: No JVD. No carotid bruits. LUNGS: Clear to auscultation bilaterally. Normal respiratory effort without the use of accessory muscles or intercostal retractions. CARDIOVASCULAR: Irregularly irregular rate and rhythm, normal S1 and S2 without murmurs, rubs, or gallops. PMI not displaced. EXTREMITIES: T no pitting edema bilaterally, no cyanosis, no clubbing. +2 pulses femoral and pedal pulses bilaterally. SKIN: No lesions or rashes. MUSCULOSKELETAL: No chest tenderness to palpation. Cardiac studies: Echocardiogram on 05/26/2020: -EF 60 to 65%. -Severe biatrial lodgment. -Mild to moderate MR, moderate TR, trace PI. -Mild to moderate pulmonary hypertension with pressures estimated between 48 and 53 mmHg. Reason For Visit: HEART FAILURE Physical Exam Vital Signs: Temp Pulse Resp BP Pulse Ox 98 F 81 16 144/79 H 98 05/27/20 00:00 05/27/20 02:00 05/27/20 00:00 05/27/20 00:00 05/27/20 00:00 Intake & Output 05/25/20 05/26/20 05/27/20 06:59 06:59 06:59 Intake Total 606 572 Output Total 2300 1800 400 Balance -2300 -1194 172 Weight 68.8 kg 68.9 kg 68.1 kg Results Laboratory Results: 05/26/20 06:20 05/26/20 05/26/20 05/26/20 06:20 06:20 08:15 WBC 8.6 RBC 3.62 L Hgb 10.0 L Hct 30.9 L MCV 85 MCH 27.5 MCHC 32.3 RDW 18.6 H Plt Count 251 Seg Neutrophils % 75.3 VBG pH VBG pCO2 VBG HCO3 VBG Base Excess Sodium 140.4 Potassium 3.1 L Chloride 97 L Carbon Dioxide 36 H Anion Gap 7 BUN 15 Creatinine 0.79 Est GFR ( Amer) > 60 Glucose 85 Calcium 8.1 L Magnesium 1.7 Urine Color YELLOW Urine Appearance CLEAR Urine pH 5.0 Ur Specific [place] 1.006 Urine Protein NEGATIVE Urine Glucose (UA) NEGATIVE Urine Ketones NEGATIVE Urine Blood SMALL H Urine Nitrite NEGATIVE Ur Leukocyte Esterase NEGATIVE Urine WBC (Auto) 1 Urine RBC (Auto) 0 05/26/20 10:55 WBC RBC Hgb Hct MCV MCH MCHC RDW Plt Count Seg Neutrophils % VBG pH 7.41 VBG pCO2 52.1 VBG HCO3 32.6 H VBG Base Excess 6.8 Sodium Potassium Chloride Carbon Dioxide Anion Gap BUN Creatinine Est GFR ( Amer) Glucose Calcium Magnesium Urine Color Urine Appearance Urine pH Ur Specific [place] Urine Protein Urine Glucose (UA) Urine Ketones Urine Blood Urine Nitrite Ur Leukocyte Esterase Urine WBC (Auto) Urine RBC (Auto) 05/24/20 13:05 Clean Catch Midstream Urine Culture - Final 3,000 col/ml 05/24/20 05/24/20 11:30 11:33 Troponin I < 0.012 NT-Pro-B Natriuret Pep 2820 H Impressions: Chest X-Ray 05/24/20 10:55 IMPRESSION: Constellation findings most likely representing pulmonary edema in the setting of congestive heart failure. Recommend radiographic follow-up. 05/26/20 06:20 MCV 85 fl (80-97) 05/26/20 06:20 MCH 27.5 pg (27.0-33.4) 05/26/20 06:20 MCHC 32.3 g/dL (32.0-36.0) 05/26/20 06:20 RDW 18.6 % (11.5-14.0) H 05/26/20 06:20 Seg Neutrophils % 75.3 % (42-78) 05/26/20 06:20 Carbonic Acid 1.36 mmol/L (1.05-1.35) H 05/24/20 11:33 HCO3/H2CO3 Ratio 22:1 05/24/20 11:33 ABG pH 7.44 (7.35-7.45) 05/24/20 11:33 ABG pCO2 45.3 mmHg (35-45) H 05/24/20 11:33 ABG pO2 53.2 mmHg (80-100) L 05/24/20 11:33 ABG HCO3 30.2 mmol/L (20-24) H 05/24/20 11:33 ABG O2 Saturation 88.6 % (94-98) L 05/24/20 11:33 ABG Base Excess 5.4 mmol/L 05/24/20 11:33 VBG pH 7.41 (7.30-7.42) 05/26/20 10:55 VBG pCO2 52.1 mmHg (35-63) 05/26/20 10:55 VBG HCO3 32.6 mmol/L (20-32) H 05/26/20 10:55 VBG Base Excess 6.8 mmol/L 05/26/20 10:55 FiO2 88% 05/24/20 11:33 Chloride 97 mmol/L (98-107) L 05/26/20 06:20 Carbon Dioxide 36 mmol/L (22-30) H 05/26/20 06:20 Anion Gap 7 (5-19) 05/26/20 06:20 Est GFR ( Amer) > 60 (>60) 05/26/20 06:20 Glucose 85 mg/dL (75-110) 05/26/20 06:20 Calcium 8.1 mg/dL (8.4-10.2) L 05/26/20 06:20 Magnesium 1.7 mg/dL (1.6-2.3) 05/26/20 06:20 Total Bilirubin 1.5 mg/dL (0.2-1.3) H 05/25/20 07:25 AST 16 U/L (14-36) 05/25/20 07:25 Alkaline Phosphatase 111 U/L (38-126) 05/25/20 07:25 Total Protein 5.2 g/dL (6.3-8.2) L 05/25/20 07:25 Albumin 3.4 g/dL (3.5-5.0) L 05/25/20 07:25 Triglycerides 87 mg/dL (<150) 05/25/20 07:25 Cholesterol 164.31 mg/dL (0-200) 05/25/20 07:25 LDL Cholesterol Direct 115 mg/dL (<100) H 05/25/20 07:25 VLDL Cholesterol 17.0 mg/dL (10-31) 05/25/20 07:25 HDL Cholesterol 31 mg/dL (>40) L 05/25/20 07:25 Urine Color YELLOW 05/26/20 08:15 Urine Appearance CLEAR 05/26/20 08:15 Urine pH 5.0 (5.0-9.0) 05/26/20 08:15 Ur Specific [place] 1.006 05/26/20 08:15 Urine Protein NEGATIVE mg/dL (NEGATIVE) 05/26/20 08:15 Urine Glucose (UA) NEGATIVE mg/dL (NEGATIVE) 05/26/20 08:15 Urine Ketones NEGATIVE mg/dL (NEGATIVE) 05/26/20 08:15 Urine Blood SMALL (NEGATIVE) H 05/26/20 08:15 Urine Nitrite NEGATIVE (NEGATIVE) 05/26/20 08:15 Ur Leukocyte Esterase NEGATIVE (NEGATIVE) 05/26/20 08:15 Urine WBC (Auto) 1 /HPF 05/26/20 08:15 Urine RBC (Auto) 0 /HPF 05/26/20 08:15 05/24/20 13:05 Clean Catch Midstream Urine Culture - Final 3,000 col/ml 05/24/20 05/24/20 11:30 11:33 Troponin I < 0.012 NT-Pro-B Natriuret Pep 2820 H Current Medication List Generic Name Dose Route Start Last Admin Trade Name Freq PRN Reason Stop Dose Admin Acetaminophen 650 mg 05/24/20 17:16 05/26/20 22:29 Tylenol 325 Mg Tablet PO 06/23/20 17:15 650 mg Q6HP PRN Administration FOR PAIN SCALE 1-3 Albuterol/Ipratropium 3 ml 05/24/20 17:26 05/26/20 23:52 Duoneb 3 Ml Ampul NEB 06/23/20 17:25 3 ml RTQ8HP PRN Administration SHORTNESS OF BREATH Aspirin 81 mg 05/25/20 10:00 05/26/20 09:27 Ecotrin 81 Mg Ec Tablet PO 06/24/20 09:59 81 mg DAILY GAIL Administration Atorvastatin Calcium 20 mg 05/26/20 22:00 05/26/20 22:34 Lipitor 20 Mg Tablet PO 06/25/20 21:59 20 mg QHS GAIL Administration Buspirone HCl 5 mg 05/24/20 18:00 05/26/20 22:32 Buspar 10 Mg Tablet PO 06/23/20 17:59 5 mg Q8 GAIL Administration Famotidine 20 mg 05/24/20 22:00 05/26/20 22:32 Pepcid 20 Mg Tablet PO 06/23/20 21:59 20 mg Q12 GAIL Administration Fluoxetine HCl 40 mg 05/25/20 10:00 05/26/20 09:29 Prozac 20 Mg Capsule PO 06/24/20 09:59 40 mg DAILY GAIL Administration Furosemide 40 mg 05/27/20 10:00 Lasix 40 Mg Tablet PO 06/26/20 09:59 DAILY GAIL Gabapentin 100 mg 05/24/20 22:00 05/26/20 22:31 Neurontin 100 Mg Capsule PO 06/23/20 21:59 100 mg Q12 GAIL Administration Losartan Potassium 50 mg 05/25/20 10:00 05/26/20 09:29 Cozaar 50 Mg Tablet PO 06/24/20 09:59 50 mg DAILY GAIL Administration Melatonin 10 mg 05/25/20 22:00 05/26/20 22:33 Melatonin 5 Mg Tablet PO 06/24/20 21:59 10 mg QHS GAIL Administration Metoprolol Tartrate 2.5 mg 05/26/20 02:13 Lopressor Inj/Pf 5 Mg/5 Ml Sdv IV 06/25/20 02:12 Q6HP PRN Give For Hr > [140] Nadolol 80 mg 05/25/20 10:00 05/26/20 09:33 Corgard 40 Mg Tablet PO 06/24/20 09:59 80 mg DAILY GAIL Administration Nitroglycerin 1 tab 05/24/20 17:16 Nitrostat 0.4 Mg (1/150 Gr) Tabs 25/Bottle SL 06/23/20 17:15 Q5MP PRN FOR CHEST PAIN Nystatin 1 applic 05/24/20 18:00 05/26/20 17:32 Mycostatin Cream 15 Gm TP 05/31/20 17:59 Not Given BID GAIL Ondansetron HCl 4 mg 05/24/20 17:16 Zofran Inj/Pf 4 Mg/2 Ml Sdv IV 06/23/20 17:15 Q6HP PRN FOR NAUSEA/VOMITING Oxycodone/Acetaminophen 1 tab 05/24/20 17:28 05/26/20 09:27 Percocet 5-325 Mg Tablet PO 05/31/20 17:27 1 tab Q6HP PRN Administration FOR PAIN SCALE 4-5 Pantoprazole Sodium 20 mg 05/24/20 17:45 05/26/20 10:[address] Tablet PO 06/23/20 17:44 20 mg BIDACBL GAIL Administration Potassium Chloride 40 meq 05/27/20 10:00 Klor-Con 10 Meq Tablet Er PO 06/26/20 09:59 DAILY GAIL Sodium Chloride 2.5 ml 05/24/20 22:00 05/26/20 22:29 Saline Flush 2.5 Ml Monoject Prefil Syrin IV 06/23/20 21:59 2.5 ml Q8 GAIL Administration Trazodone HCl 50 mg 05/24/20 22:00 05/26/20 22:31 Desyrel 50 Mg Tablet PO 06/23/20 21:59 50 mg QHS GAIL Administration Warfarin Sodium 4 mg 05/26/20 22:00 05/26/20 22:29 Jantoven 4 Mg Tablet PO 06/25/20 21:59 4 mg QHS GAIL Administration Discontinued Medications Generic Name Dose Route Start Last Admin Trade Name Freq PRN Reason Stop Dose Admin Acetaminophen 650 mg 05/24/20 11:29 05/24/20 11:44 Tylenol 325 Mg Tablet PO 05/24/20 11:30 650 mg NOW ONE Administration Atorvastatin Calcium 10 mg 05/24/20 22:00 05/25/20 21:03 Lipitor 10 Mg Tablet PO 06/23/20 21:59 10 mg QHS GAIL Administration Fluoxetine HCl 40 mg 05/24/20 17:28 05/24/20 18:09 Prozac 20 Mg Capsule PO 05/24/20 17:29 40 mg NOW ONE Administration Furosemide 20 mg 05/24/20 13:00 05/24/20 14:25 Lasix Inj/Pf 20 Mg/2 Ml Sdv IV 05/24/20 13:01 20 mg NOW ONE Administration Furosemide 40 mg 05/24/20 18:00 05/26/20 09:29 Lasix Inj/Pf 40 Mg/4 Ml Sdv IV 06/23/20 17:59 40 mg BID GAIL Administration Potassium Chloride/Water 20 meq in 50 mls @ 25 mls/hr 05/26/20 10:00 05/26/20 16:11 Potassium Chloride Jarek 20 Meq/50 Ml IV 05/26/20 13:59 Infused Q2H GAIL Infusion Losartan Potassium 50 mg 05/24/20 17:39 05/24/20 18:09 Cozaar 50 Mg Tablet PO 05/24/20 17:40 50 mg NOW ONE Administration Magnesium Oxide 800 mg 05/26/20 10:00 05/26/20 10:54 Mag-Ox 400 Mg Tablet PO 05/26/20 10:01 800 mg NOW ONE Administration Pharmacy Consult 1 dose 05/24/20 21:00 Warfarin Pharmacy To Dose PO 06/23/20 20:59 .PHARMACY TO DOSE GAIL Protocol Potassium Chloride 20 meq 05/25/20 10:00 05/25/20 09:38 Klor-Con 10 Meq Tablet Er PO 06/24/20 09:59 20 meq DAILY GAIL Administration Potassium Chloride 40 meq 05/26/20 10:00 05/26/20 22:31 Klor-Con 10 Meq Tablet Er PO 05/26/20 22:01 40 meq Q12 GAIL Administration Warfarin Sodium 3 mg 05/25/20 22:00 05/25/20 21:05 Jantoven 3 Mg Tablet PO 06/24/20 21:59 3 mg QHS GAIL Administration Assessment & Plan - Diagnosis (1) Acute congestive heart failure Qualifiers: Heart failure type: unspecified Qualified Code(s): I50.9 - Heart failure, unspecified Is this a current diagnosis for this admission?: Yes Plan: The patient has heart failure with preserved ejection fraction secondary to a high sodium diet. She has no evidence of acute cardiac ischemia at this point and has diuresed 3.3 L. There is no evidence of fluid overload at this point and she feels much better. Her lower extremity edema is resolved. Her hypokalemia is also resolved. Recommendations: -Continue with current medical management. -Replace potassium as needed. -Low sodium, <1500mg daily. -The patient was instructed to weigh herself every morning and to call the office immediately if weight gain of 3 pounds overnight or 5 pounds in 1 week. -Follow-up with Dr. Cruz within 1 week of discharge. I will arrange for this. -The patient may be discharged from the cardiovascular standpoint. (2) CAD (coronary artery disease) Is this a current diagnosis for this admission?: Yes Plan: No ischemic symptoms currently and no details of her CAD. I spoke with her daughter via phone who stated that she had several cardiac caths without significant blockages and she did have small vessels. Recommendations: -Continue with current management for now. 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 (3) Hypertension Qualifiers: Hypertension type: essential hypertension Qualified Code(s): I10 - Essential (primary) hypertension Is this a current diagnosis for this admission?: Yes Plan: Her blood pressure is now at goal. Recommendations: -Continue with current management for now. -I will defer further management to primary team.
[2020-05-27] MEDS ORDERED: FUROSEMIDE 40 MG TABLET PO SCH (10:00)
[2020-05-27] MEDS ORDERED: POTASSIUM CHLORIDE 10 MEQ TABLET.ER PO SCH (10:00)
[2020-05-27] MEDS: ACETAMINOPHEN 325 MG TABLET PO PRN (10:57)
[2020-05-27] MEDS: NADOLOL 40 MG TABLET PO SCH (10:57)
--- NOTE | 2020-05-27 12:03 | RADIOLOGY REPORT (SQ) ---
EXAM DESCRIPTION: CHEST SINGLE VIEW IMAGES COMPLETED DATE/TIME: 05/27/2020 11:55 am REASON FOR STUDY: rule out pneumonia COMPARISON: AP view of the chest from 05/24/2020. EXAM PARAMETERS: NUMBER OF VIEWS: One view. TECHNIQUE: An AP view of the chest was obtained. RADIATION DOSE: NA LIMITATIONS: None. FINDINGS: LUNGS AND PLEURA: Unchanged pleural and parenchymal opacities in the inferior aspect of th e left hemithorax that could represent a combination of pleural fluid, atelectasis and or pneumonia. The diffuse prominence of the interstitium is also unchanged. The right lateral costophrenic sulcus remains blunted. There is no pneumothorax. MEDIASTINUM AND HILAR STRUCTURES: No mediastinal or hilar contour abnormality. HEART AND VASCULAR STRUCTURES: Stable enlarged cardiac silhouette. BONES: No acute findings. HARDWARE: None in the chest. OTHER: No other finding. IMPRESSION: Unchanged pleural and parenchymal opacities in the inferior aspect of the left hemithora x that could represent a combination of pleural fluid, atelectasis and/or pneumonia. TECHNICAL DOCUMENTATION: JOB ID: [id number] 2010 [email or web address]- All Rights Reserved Reading location - IP/workstation name: [email or web address]
--- NOTE | 2020-05-27 12:37 | CDI QUERY ---
CDI Query CDI Review: We are seeking further clarification of documentation to reflect the severity of illness of your patient. Noted in the Progress Notes: Acute congestive heart failure Qualifiers: Heart failure type: unspecified Qualified Code(s): I50.9 - Heart failure, unspecified Is this a current diagnosis for this admission?: Yes Plan: Improved Cardiology following and recommending de-escalation of diuresis to Lasix p.o. 40 daily Echocardiogram done. Awaiting results. Received repletion's with IV and p.o. potassium this morning and will get p.o. potassium again tonight. Based on your medical judgement, when you have the results of the Echo, please further clarify the CHF: Systolic Diastolic Combined systolic/diastolic Other (please specify) None of the above / Not Applicable Thank you for your consideration. WICHO VelasquezN RN Clinical [employer] Checker Physician Advisor [email or web address]
--- NOTE | 2020-05-27 19:53 | PDOC DISCHARGE SUMMARY ---
Impression - Admit/DC Date/PCP Admission Date/Primary Care Provider: 05/24/20 13:21 Discharge Date: 05/27/20 - Discharge Diagnosis (1) Acute on chronic right-sided congestive heart failure Is this a current diagnosis for this admission?: Yes - Assessment Summary: 85 F with chronic atrial fibrillation on anticoagulation, MVP, CAD, CHF, HLD who presented with progressively worsening SOB due to acute hypoxemic respiratory failure secondary to acute on chronic right-sided congestive heart failure. Cardiology was consulted. She received IV Diuresis with Lasix. She was weaned off supplemental O2. She was discharged home with CHF education, low sodium diet education, and home Lasix therapy. She was also started on Cozaar. She was advised to follow up with her PCP and Cardiology in [place] (where she resides) within 1 week. - Additional Information Resuscitation Status: Full Code Discharge Diet: Cardiac, Other (Comments) - LOW SALT Discharge Activity: Activity As Tolerated, Weigh Daily Prescriptions: Losartan Potassium [Cozaar 50 mg Tablet] 50 mg PO DAILY #30 tablet Furosemide [Lasix 40 mg Tablet] 40 mg PO DAILY #30 tablet Home Medications: Acetaminophen [Tylenol] 650 mg PO Q4HP PRN 05/10/20 Aspirin [Ecotrin 81 mg EC Tablet] 81 mg PO DAILY 05/10/20 Buspirone HCl 5 mg PO TID 05/10/20 Fluoxetine HCl [Prozac 20 mg Capsule] 40 mg PO DAILY 05/10/20 Gabapentin [Neurontin 100 mg Capsule] 100 mg PO Q12 05/10/20 Nadolol 80 mg PO DAILY 05/10/20 Nitroglycerin [Nitrostat 0.4 mg (1/150 Gr) Tabs 25/Bottle] 1 tab SL Q5MP PRN 05/10/20 Omeprazole 20 mg PO DAILY 05/10/20 Oxycodone HCl/Acetaminophen [Percocet 5-325 mg Tablet] 1 tab PO Q6HP PRN 05/10/20 Potassium Chloride [Klor-Con M10] 10 meq PO Q3D 05/10/20 Rosuvastatin Calcium 5 mg PO MOWEFR@1000 05/10/20 Trazodone HCl [Desyrel 50 mg Tablet] 50 mg PO HSP PRN 05/10/20 Warfarin Sodium [Jantoven 3 mg Tablet] 3 mg PO QHS 05/10/20 Furosemide [Lasix 40 mg Tablet] 40 mg PO DAILY #30 tablet 05/27/20 Losartan Potassium [Cozaar 50 mg Tablet] 50 mg PO DAILY #30 tablet 05/27/20 History of Present Illiness History of Present Illness: CHANCE RUBIO is a 85 year old female Physical Exam Vital Signs: Temp Pulse Resp BP Pulse Ox 98 F 81 16 144/79 H 95 05/27/20 16:11 05/27/20 16:11 05/27/20 16:11 05/27/20 16:11 05/27/20 16:11 Intake & Output 05/26/20 05/27/20 05/28/20 06:59 06:59 06:59 Intake Total 606 572 Output Total 1800 400 Balance -1194 172 Weight 68.9 kg 68.1 kg Results Laboratory Results: WBC 8.6 10^3/uL (4.0-10.5) 05/26/20 06:20 RBC 3.62 10^6/uL (3.72-5.28) L 05/26/20 06:20 Hgb 10.0 g/dL (12.0-15.5) L 05/26/20 06:20 Hct 30.9 % (36.0-47.0) L 05/26/20 06:20 MCV 85 fl (80-97) 05/26/20 06:20 MCH 27.5 pg (27.0-33.4) 05/26/20 06:20 MCHC 32.3 g/dL (32.0-36.0) 05/26/20 06:20 RDW 18.6 % (11.5-14.0) H 05/26/20 06:20 Plt Count 251 10^3/uL (150-450) 05/26/20 06:20 Lymph % (Auto) 10.6 % (13-45) L 05/26/20 06:20 [place] % (Auto) 10.2 % (3-13) 05/26/20 06:20 Eos % (Auto) 3.3 % (0-6) 05/26/20 06:20 Baso % (Auto) 0.6 % (0-2) 05/26/20 06:20 Absolute Neuts (auto) 6.5 10^3/uL (1.7-8.2) 05/26/20 06:20 Absolute Lymphs (auto) 0.9 10^3/uL (0.5-4.7) 05/26/20 06:20 Absolute Monos (auto) 0.9 10^3/uL (0.1-1.4) 05/26/20 06:20 Absolute Eos (auto) 0.3 10^3/uL (0.0-0.6) 05/26/20 06:20 Absolute Basos (auto) 0.1 10^3/uL (0.0-0.2) 05/26/20 06:20 Seg Neutrophils % 75.3 % (42-78) 05/26/20 06:20 PT 19.9 SEC (11.4-15.4) H 05/27/20 05:49 INR 1.68 05/27/20 05:49 Carbonic Acid 1.36 mmol/L (1.05-1.35) H 05/24/20 11:33 HCO3/H2CO3 Ratio 22:1 05/24/20 11:33 ABG pH 7.44 (7.35-7.45) 05/24/20 11:33 ABG pCO2 45.3 mmHg (35-45) H 05/24/20 11:33 ABG pO2 53.2 mmHg (80-100) L 05/24/20 11:33 ABG HCO3 30.2 mmol/L (20-24) H 05/24/20 11:33 ABG Total CO2 31.6 mmol/L (21-25) H 05/24/20 11:33 ABG O2 Saturation 88.6 % (94-98) L 05/24/20 11:33 ABG Base Excess 5.4 mmol/L 05/24/20 11:33 VBG pH 7.41 (7.30-7.42) 05/26/20 10:55 VBG pCO2 52.1 mmHg (35-63) 05/26/20 10:55 VBG HCO3 32.6 mmol/L (20-32) H 05/26/20 10:55 VBG Base Excess 6.8 mmol/L 05/26/20 10:55 FiO2 88% 05/24/20 11:33 Sodium 140.9 mmol/L (137-145) 05/27/20 05:49 Potassium 5.0 mmol/L (3.6-5.0) D 05/27/20 05:49 Chloride 103 mmol/L (98-107) 05/27/20 05:49 Carbon Dioxide 31 mmol/L (22-30) H 05/27/20 05:49 Anion Gap 7 (5-19) 05/27/20 05:49 BUN 19 mg/dL (7-20) 05/27/20 05:49 Creatinine 0.82 mg/dL (0.52-1.25) 05/27/20 05:49 Est GFR ( Amer) > 60 (>60) 05/27/20 05:49 Est GFR (MDRD) Non-Af > 60 (>60) 05/27/20 05:49 Glucose 85 mg/dL (75-110) 05/27/20 05:49 Calcium 8.2 mg/dL (8.4-10.2) L 05/27/20 05:49 Magnesium 1.8 mg/dL (1.6-2.3) 05/27/20 05:49 Total Bilirubin 1.5 mg/dL (0.2-1.3) H 05/25/20 07:25 Direct Bilirubin 0.4 mg/dL (0.0-0.4) 05/25/20 07:25 Neonat Total Bilirubin Not Reportable 05/25/20 07:25 Neonat Direct Bilirubin Not Reportable 05/25/20 07:25 Neonat Indirect Bili Not Reportable 05/25/20 07:25 AST 16 U/L (14-36) 05/25/20 07:25 ALT 8 U/L (<35) 05/25/20 07:25 Alkaline Phosphatase 111 U/L (38-126) 05/25/20 07:25 Troponin I < 0.012 ng/mL 05/24/20 11:30 NT-Pro-B Natriuret Pep 2820 pg/mL (<450) H 05/24/20 11:33 Total Protein 5.2 g/dL (6.3-8.2) L 05/25/20 07:25 Albumin 3.4 g/dL (3.5-5.0) L 05/25/20 07:25 Triglycerides 87 mg/dL (<150) 05/25/20 07:25 Cholesterol 164.31 mg/dL (0-200) 05/25/20 07:25 LDL Cholesterol Direct 115 mg/dL (<100) H 05/25/20 07:25 VLDL Cholesterol 17.0 mg/dL (10-31) 05/25/20 07:25 HDL Cholesterol 31 mg/dL (>40) L 05/25/20 07:25 Urine Color YELLOW 05/26/20 08:15 Urine Appearance CLEAR 05/26/20 08:15 Urine pH 5.0 (5.0-9.0) 05/26/20 08:15 Ur Specific [place] 1.006 05/26/20 08:15 Urine Protein NEGATIVE mg/dL (NEGATIVE) 05/26/20 08:15 Urine Glucose (UA) NEGATIVE mg/dL (NEGATIVE) 05/26/20 08:15 Urine Ketones NEGATIVE mg/dL (NEGATIVE) 05/26/20 08:15 Urine Blood SMALL (NEGATIVE) H 05/26/20 08:15 Urine Nitrite NEGATIVE (NEGATIVE) 05/26/20 08:15 Urine Nitrite (Reflex) NEGATIVE (NEGATIVE) 05/24/20 13:05 Urine Bilirubin NEGATIVE (NEGATIVE) 05/26/20 08:15 Urine Urobilinogen NEGATIVE mg/dL (<2.0) 05/26/20 08:15 Ur Leukocyte Esterase NEGATIVE (NEGATIVE) 05/26/20 08:15 Leukocyte Esterase Rfl TRACE (NEGATIVE) H 05/24/20 13:05 Urine WBC (Auto) 1 /HPF 05/26/20 08:15 Urine RBC (Auto) 0 /HPF 05/26/20 08:15 U Hyaline Cast (Auto) 1 /LPF 05/24/20 13:05 Urine WBC (Reflex) 4 /HPF 05/24/20 13:05 Squamous Epi Cells Auto 1 /HPF 05/26/20 08:15 Urine Mucus (Auto) RARE /LPF 05/26/20 08:15 Urine Ascorbic Acid NEGATIVE (NEGATIVE) 05/26/20 08:15 COVID-19 Source Cancelled 05/24/20 14:45 COVID-19 (ASTRID) Cancelled 05/24/20 14:45 SARS-CoV-2 (PCR) NEGATIVE (NEGATIVE) 05/24/20 14:45 05/24/20 05/24/20 11:30 11:33 Troponin I < 0.012 NT-Pro-B Natriuret Pep 2820 H Impressions: Chest X-Ray 05/24/20 10:55 IMPRESSION: Constellation findings most likely representing pulmonary edema in the setting of congestive heart failure. Recommend radiographic follow-up. Chest X-Ray 05/27/20 00:00 IMPRESSION: Unchanged pleural and parenchymal opacities in the inferior aspect of the left hemithorax that could represent a combination of pleural fluid, atelectasis and/or pneumonia. Stroke Is this a Stroke Patient?: No Acute Heart Failure - Is this a Heart Failure Patient?: Yes Documentation of LVEF assessment?: Yes LVEF: LVEF Greater Than 40% Anticoagulant Therapy: Yes
== END 2020-05-27 17:28 | disposition home or self-care (01) | DRG 291 ==
LOC: ER 10:45 → EH 13:21 → 4S 18:50
PROVIDERS: ADMIT Internal Medicine; ATTEND Hospitalist
DX: I11.0 Hypertensive heart disease with heart failure (principal); J96.01 Acute respiratory failure with hypoxia; I48.20 Chronic atrial fibrillation, unspecified; B02.23 Postherpetic polyneuropathy; I50.813 Acute on chronic right heart failure; J44.9 Chronic obstructive pulmonary disease, unspecified; E78.5 Hyperlipidemia, unspecified; F03.90 Unspecified dementia, unspecified severity, without behavioral disturbance, psychotic disturbance, mood disturbance, and anxiety; M95.8 Other specified acquired deformities of musculoskeletal system; E87.6 Hypokalemia; Z88.6 Allergy status to analgesic agent; I25.2 Old myocardial infarction; Z90.49 Acquired absence of other specified parts of digestive tract; Z90.710 Acquired absence of both cervix and uterus; Z79.01 Long term (current) use of anticoagulants; Z82.49 Family history of ischemic heart disease and other diseases of the circulatory system; Z79.899 Other long term (current) drug therapy; Z86.718 Personal history of other venous thrombosis and embolism
CPT/HCPCS: 36415; 71045; 80048; 80053; 80061; 80076; 81001; 82803; 83735; 83880; 84484; 85025; 85610; 87086; 87635; 93005; 93010; 93306; 94640; 96374; 99285; C9803; J1940; J3480; J3490